=== PATIENT | female | born 1945 | race Caucasian/White ===

== ENCOUNTER → 2017-02-20 | Outpatient (CLI) | payer MEDICARE, OTHER ==
[2017-02-20 11:05] LABS: ABSOLUTE BASOPHILS # (AUTO) 0.1 10^3/uL (0.0-0.2); ABSOLUTE EOSINOPHILS # (AUTO) 1.1 10^3/uL (0.0-0.6); ABSOLUTE LYMPHOCYTES (AUTO) 1.7 10^3/uL (0.5-4.7); ABSOLUTE MONOCYTES (AUTO) 1.4 10^3/uL (0.1-1.4); ABSOLUTE NEUT (AUTO) 4.2 10^3/uL (1.7-8.2); BASOPHILS % (AUTO) 0.9 % (0-2); EOSINOPHILS % (AUTO) 12.6 % (0-6); HEMATOCRIT 37.1 % (36.0-47.0); HEMOGLOBIN 12.4 g/dL (12.0-15.5); HGB HCT DIFFERENCE 0.1; LYMPHOCYTES % (AUTO) 19.7 % (13-45); MEAN CORPUSCULAR HEMOGLOBIN 28.2 pg (27.0-33.4); MEAN CORPUSCULAR HGB CONC 33.3 g/dL (32.0-36.0); MEAN CORPUSCULAR VOLUME 85 fl (80-97); MONOCYTES % (AUTO) 16.7 % (3-13); RED BLOOD COUNT 4.37 10^6/uL (3.72-5.28); RED CELL DISTRIBUTION WIDTH 14.4 % (11.5-14.0); SEGMENTED NEUTROPHILS % (AUTO) 50.1 % (42-78); WHITE BLOOD COUNT 8.4 10^3/uL (4.0-10.5)
--- NOTE | 2017-02-20 11:07 | EKG REPORT ---
SEVERITY:- ABNORMAL ECG - SINUS RHYTHM LEFT BUNDLE BRANCH BLOCK : Confirmed by: Elizabeth Ford 20-Feb-2017 11:07:34
[2017-02-20 11:29] LABS: ANION GAP 11 (5-19); BLOOD UREA NITROGEN 19 mg/dL (7-20); CALCIUM 10.5 mg/dL (8.4-10.2); CARBON DIOXIDE 31 mmol/L (22-30); CHLORIDE 103 mmol/L (98-107); CREATININE RESULT 0.77 mg/dL (0.52-1.25); GLUCOSE 84 mg/dL (75-110); POTASSIUM 5.1 mmol/L (3.6-5.0); SODIUM 144.5 mmol/L (137-145)
[2017-02-20 11:36] LABS: APPEARANCE,URINE SLIGHTLY-CLOUDY; BILIRUBIN,URINE NEGATIVE (NEGATIVE); GLUCOSE, URINE NEGATIVE (NEGATIVE); KETONES,URINE TRACE mg/dL (NEGATIVE); LEUKOCYTE ESTERASE,URINE TRACE (NEGATIVE); NITRITE,URINE NEGATIVE (NEGATIVE); PROTEIN,URINE 30 mg/dL (NEGATIVE); URINE SPECIFIC GRAVITY 1.026; UROBILINOGEN,URINE NEGATIVE mg/dL (<2.0)
== END ==
LOC: OD 09:45
PROVIDERS: ATTEND Orthopaedic Surgery
DX: Z01.810 Encounter for preprocedural cardiovascular examination (principal); Z01.811 Encounter for preprocedural respiratory examination; Z01.818 Encounter for other preprocedural examination; J44.9 Chronic obstructive pulmonary disease, unspecified
CPT/HCPCS: 36415; 71020; 80048; 81001; 85025; 93005; 93010

== ENCOUNTER → 2017-03-01 | Outpatient (CLI) | payer MEDICARE, OTHER | LOC: RAD 11:57 | PROVIDERS: ATTEND Internal Medicine Critical Care Medicine | DX: R91.8 Other nonspecific abnormal finding of lung field (principal); R06.02 Shortness of breath; Z72.0 Tobacco use; J18.2 Hypostatic pneumonia, unspecified organism; R06.83 Snoring; G47.33 Obstructive sleep apnea (adult) (pediatric) | CPT/HCPCS: 71250 ==

== ENCOUNTER → 2017-03-01 | Outpatient (CLI) | payer MEDICARE, OTHER ==
[~2017-03-01] MED LIST: IBUPROFEN 800 MG/NS 250 ML IV PRN; LACTATED RINGERS 1000 ML IV PRN; LANSOPRAZOLE 15 MG TAB.RAP.DR PO PRN; LIDOCAINE 0.5% INJ-PF (5 MG/ML) 50 ML SDV SUBCUT PRN; OXYCODONE HCL SR 10 MG TABLET PO PRN; SCOPOLAMINE HYDROBROMIDE 1.5 MG PATCH.TD72 TOP PRN; VANCOMYCIN HCL 1,000 MG in DEXTROSE 5%-WATER 250 ML IV PRN
== END ==
LOC: OD 11:35 → EDSTATUS 03-12 12:30
PROVIDERS: ATTEND Orthopaedic Surgery
DX: Z53.9 Procedure and treatment not carried out, unspecified reason (principal)
CPT/HCPCS: J1741; J3370; J7050; J7060

== ENCOUNTER → 2017-03-21 | Outpatient (CLI) | payer MEDICARE, OTHER ==
[2017-03-22 11:40] LABS: ANTI-SS-B AB SJOGREN'S <0.2 AI (0.0-0.9); JO-1 ANTIBODY (ANACOMP) <0.2 AI (0.0-0.9)
[2017-03-22 14:13] LABS: ANGIOTENSIN-CONVERTING ENZYME 62 U/L (14-82)
[2017-03-23 14:40] LABS: ALPHA-1-ANTITRYPSIN SERUM 170 mg/dL (90-200)
[2017-03-23 17:37] LABS: CYTOPLASMIC (C-ANCA) <1:20 titer (Neg:<1:20)
== END ==
LOC: OD 08:29
PROVIDERS: ATTEND Internal Medicine Critical Care Medicine
DX: J45.909 Unspecified asthma, uncomplicated (principal); R91.8 Other nonspecific abnormal finding of lung field; R06.09 Other forms of dyspnea; J84.9 Interstitial pulmonary disease, unspecified; M19.90 Unspecified osteoarthritis, unspecified site; K21.9 Gastro-esophageal reflux disease without esophagitis; Z86.79 Personal history of other diseases of the circulatory system
CPT/HCPCS: 36415; 82103; 82104; 82164; 85652; 86021; 86038; 86140; 86235; 86430

== ENCOUNTER → 2017-05-15 | Outpatient (CLI) | payer MEDICARE, OTHER ==
[~2017-05-15] MED LIST changes: +BUPIVACAINE INJ/PF LIPOSOME/PF 266 MG/20 ML SDV IJ PRN; +CEFAZOLIN INJ 1 GM VIAL IV PRN; +IBUPROFEN 800 MG in NORMAL SALINE 250 ML IV PRN; -SCOPOLAMINE HYDROBROMIDE 1.5 MG PATCH.TD72 TOP PRN
--- NOTE | 2017-05-15 12:40 | EKG REPORT ---
SEVERITY:- ABNORMAL ECG - SINUS RHYTHM LVH WITH IVCD, LAD AND SECONDARY REPOL ABNRM : Confirmed by: Alyssa Coley MD 15-May-2017 12:39:59
[2017-05-15 12:48] LABS: HEMATOCRIT 40.7 % (36.0-47.0); HEMOGLOBIN 13.1 g/dL (12.0-15.5); HGB HCT DIFFERENCE -1.4; MEAN CORPUSCULAR HEMOGLOBIN 27.7 pg (27.0-33.4); MEAN CORPUSCULAR HGB CONC 32.2 g/dL (32.0-36.0); MEAN CORPUSCULAR VOLUME 86 fl (80-97); RED BLOOD COUNT 4.73 10^6/uL (3.72-5.28); RED CELL DISTRIBUTION WIDTH 13.9 % (11.5-14.0); WHITE BLOOD COUNT 9.7 10^3/uL (4.0-10.5)
[2017-05-15 12:56] LABS: APPEARANCE,URINE CLEAR; BILIRUBIN,URINE NEGATIVE (NEGATIVE); GLUCOSE, URINE NEGATIVE (NEGATIVE); KETONES,URINE NEGATIVE (NEGATIVE); LEUKOCYTE ESTERASE,URINE NEGATIVE (NEGATIVE); NITRITE,URINE NEGATIVE (NEGATIVE); PROTEIN,URINE NEGATIVE (NEGATIVE); URINE SPECIFIC GRAVITY 1.008; UROBILINOGEN,URINE NEGATIVE mg/dL (<2.0)
[2017-05-15 13:16] LABS: ANION GAP 14 (5-19); BLOOD UREA NITROGEN 21 mg/dL (7-20); CALCIUM 10.2 mg/dL (8.4-10.2); CARBON DIOXIDE 27 mmol/L (22-30); CHLORIDE 100 mmol/L (98-107); CREATININE RESULT 0.85 mg/dL (0.52-1.25); GLUCOSE 85 mg/dL (75-110); POTASSIUM 5.1 mmol/L (3.6-5.0); SODIUM 140.5 mmol/L (137-145)
--- NOTE | 2017-05-15 15:05 | RADIOLOGY REPORT (SQ) ---
EXAM DESCRIPTION: CHEST PA/LATERAL COMPLETED DATE/TIME: 05/15/2017 1:13 pm REASON FOR STUDY: PRE OP COMPARISON: CT chest 03/01/2017 Two-view chest 02/20/2017, 06/07/2016 EXAM PARAMETERS: NUMBER OF VIEWS: two views TECHNIQUE: Digital Frontal and Lateral radiographic views of the chest acquired. RADIATION DOSE: NA LIMITATIONS: none FINDINGS: LUNGS AND PLEURA: Lungs are hyperinflated with flattening of the hemidiaphragms. No focal infiltrates. No pleural effusion. No pneumothorax. MEDIASTINUM AND HILAR STRUCTURES: No masses or contour abnormalities. HEART AND VASCULAR STRUCTURES: Mild cardiomegaly. BONES: No acute findings. HARDWARE: None in the chest. OTHER: No other significant finding. IMPRESSION: Hyperinflation from obstructive disease. Stable cardiomegaly. TECHNICAL DOCUMENTATION: JOB ID: [id number] [email or web address]- All Rights Reserved <Electronically signed by SILVIA MENA MD in [place]> 05/15/17 1505 MTDD
[2017-05-18 14:51] VITALS: BP 124/89
== END ==
LOC: OD 10:16 → EDSTATUS 05-21 12:30
PROVIDERS: ATTEND Orthopaedic Surgery
DX: Z01.818 Encounter for other preprocedural examination (principal); M16.12 Unilateral primary osteoarthritis, left hip; M25.552 Pain in left hip
CPT/HCPCS: 36415; 71020; 80048; 81001; 85027; 93005; 93010; J1741; J3370; J7050; J7060

== ENCOUNTER 2017-08-13 07:00 | Day surgery (SDC) | payer MEDICARE, OTHER ==
[2017-08-13] MEDS ORDERED: PROPOFOL INJ 200 MG/20 ML VIAL IV ONE (07:21)
[2017-08-13] MEDS ORDERED: IPRATROPIUM/ALBUTEROL 0.5-2.5 MG/3 ML AMPUL NEB ONE (08:17)
[2017-08-13 10:00] VITALS: BP 119/70
--- NOTE | 2017-08-13 12:13 | Operative Report ---
Operative Report DATE OF SURGERY: 08/13/17 Operative Report: The risks, benefits and alternatives of the procedure including risks of bleeding, perforation requiring surgery are explained to the patient detail and informed consent was obtained. Patient was taken back to the endoscopy suite and placed in the left, lateral decubital position. Timeout was called. Propofol medications administered. A rectal examination was done which did not reveal any masses, tears or fissures. An Olympus videoscope was inserted in the patient's rectum. It was carefully guided all the way to the cecum. The cecum was identified by the usual anatomical landmarks including the ileocecal valve as well as the appendiceal office. Prep is good. Photodocumentation is obtained. The scope was then sequentially pulled back via the rest segments of the colon including the ascending colon, hepatic flexure, transverse colon, splenic flexure, descending colon finding to the rectosigmoid portions of the colon. Retroflexion maneuvers performed. The risks benefits and alternatives of the procedure explained to the patient in detail and informed consent is obtained.A GIF Olympus video scope was inserted into the patient's mouth and hypopharynx, the esophagus is identified intubated and insufflated, the scope was then advanced through the esophagus stomach and duodenum, retroflexion maneuver is done ,the esophagus stomach and first and second portions of the duodenum examined PREOPERATIVE DIAGNOSIS: Personal history of polyps. Gastroesophageal reflux disease. Epigastric pain POSTOPERATIVE DIAGNOSIS: Schatzki's ring status post biopsy to break. Hiatal hernia. Gastritis status post biopsy rule out Helicobacter pylori. Diverticulosis. Internal hemorrhoids. Mild right-sided colon inflammation status post biopsy OPERATION: Colonoscopy with biopsy. EGD with biopsy SURGEON: ARACELI HSU ANESTHESIA: LMAC TISSUE REMOVED OR ALTERED: As described above. COMPLICATIONS: None. ESTIMATED BLOOD LOSS: None. INTRAOPERATIVE FINDINGS: As described above. PROCEDURE: Patient tolerated procedure well. No immediate postprocedure complications are noted. Patient discharged in good condition. Discharge date 08/13/2017. Discharge diet: Regular. Discharge activity: Regular. 2-3 week follow-up to discuss findings. Patient is instructed to call the office or proceed to the emergency room should there be any further problems or questions. We will wait on pathology. 5 year surveillance colonoscopy
== END 2017-08-13 10:10 | disposition home or self-care (01) ==
LOC: END 07:00
PROVIDERS: ATTEND Internal Medicine Gastroenterology
PROC: 0DB68ZX Excision of Stomach, Via Natural or Artificial Opening Endoscopic, Diagnostic (ICD-10-PCS; principal; 2017-08-13 08:00)
PROC: 0DBF8ZX Excision of Right Large Intestine, Via Natural or Artificial Opening Endoscopic, Diagnostic (ICD-10-PCS; 2017-08-13 08:00)
DX: Z12.11 Encounter for screening for malignant neoplasm of colon (principal); K57.30 Diverticulosis of large intestine without perforation or abscess without bleeding; Z86.010 Personal history of colon polyps; K64.8 Other hemorrhoids; K22.2 Esophageal obstruction; K31.89 Other diseases of stomach and duodenum; K29.50 Unspecified chronic gastritis without bleeding; K44.9 Diaphragmatic hernia without obstruction or gangrene; J44.9 Chronic obstructive pulmonary disease, unspecified; M19.90 Unspecified osteoarthritis, unspecified site; I10 Essential (primary) hypertension; Z79.899 Other long term (current) drug therapy; Z79.51 Long term (current) use of inhaled steroids; Z88.1 Allergy status to other antibiotic agents; Z79.82 Long term (current) use of aspirin; I49.9 Cardiac arrhythmia, unspecified; G47.30 Sleep apnea, unspecified
CPT/HCPCS: 43239; 45380; 96375; 88305 ×2; 94640; J2704; A9270; 810; J7620

== ENCOUNTER → 2017-10-24 | Outpatient (CLI) | payer MEDICARE, OTHER ==
--- NOTE | 2017-10-24 09:37 | WOMENS IMAGING REPORT ---
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 TECHNIQUE: Dual-Energy X-ray Absorptiometry (DEXA) of the AP Spine and Hip. LIMITATIONS: None. FINDINGS: LUMBAR SPINE: The bone mineral density (BMD) measured from L1-L4 in the AP projection correlates with a T-score of 0.1, which is normal as defined by the World Health Organization. HIP: The bone mineral density (BMD) measured in the right hip correlates with a T-score of -1.4, which is osteopenia as defined by the World Health Organization. IMPRESSION: 1. LUMBAR SPINE: NORMAL. 2. HIP: OSTEOPENIA. COMMENT: The World Health Organization defines low BMD as follows: T-score: Normal: Greater than -1.0 Osteopenia: Between -1.0 and -2.5 Osteoporosis: Less than -2.5 without fractures Established osteoporosis: Less than -2.5 with fractures In general, you may wish to consider: Diagnosis Treatment Follow-up DEXA Normal BMD Prevention 2-3 years Osteopenia Prevention/Therapy 1-2 years Osteoporosis Therapy Yearly TECHNICAL DOCUMENTATION: JOB ID: [id number] [employer]- All Rights Reserved
== END ==
LOC: WI 08:52
PROVIDERS: ATTEND Internal Medicine
DX: M25.552 Pain in left hip (principal); Z96.642 Presence of left artificial hip joint; Z79.52 Long term (current) use of systemic steroids
CPT/HCPCS: 77080

== ENCOUNTER → 2018-07-08 | Outpatient (CLI) | payer MEDICARE, OTHER ==
--- NOTE | 2018-07-08 13:09 | RADIOLOGY REPORT (SQ) ---
EXAM DESCRIPTION: CT CHEST WITHOUT COMPLETED DATE/TIME: 07/08/2018 10:37 am REASON FOR STUDY: BRONCHIECTASIS, UNCOMPLICATED (J47.9) J47.9 BRONCHIECTASIS, UNCOMPLICATED COMPARISON: 03/01/2017 TECHNIQUE: CT scan performed of the chest without intravenous contrast. Images reviewed with lung, soft tissue and bone windows. Reconstructed coronal and sagittal MPR images reviewed. All images st ored on PACS. All CT scanners at this facility use dose modulation, iterative reconstruction, and/or weight based d osing when appropriate to reduce radiation dose to as low as reasonably achievable (ALARA). [facility]: Dose Right [facility]: CareDose [facility]: Dose Right [facility]: Teradose 4D [facility]: Applied StemCell RADIATION DOSE: CT Rad equipment meets quality standard of care and radiation dose reduction techniq ues were employed. CTDIvol: 16.6 mGy. DLP: 620 mGy-cm. mGy. LIMITATIONS: No technical limitations. FINDINGS: LUNGS AND PLEURA: Stable subsegmental honeycombing in the right upper lobe. Mild bronchie ctasis. No progression. No developing nodules or effusions. HILAR AND MEDIASTINAL STRUCTURES: No identified masses or abnormal nodes. No obvious aneurysm. HEART AND VASCULAR STRUCTURES: No aneurysm. No pericardial effusion. UPPER ABDOMEN: No significant findings. Limited exam. THYROID AND OTHER SOFT TISSUES: No masses. No adenopathy. BONES: No significant finding. HARDWARE: None in the chest. OTHER: No other significant findings. IMPRESSION: Mild fibrosis and bronchiectasis. No significant change. TECHNICAL DOCUMENTATION: JOB ID: [id number] Quality ID # [id number]: Final reports with documentation of one or more dose reduction techniques (e.g., Au tomated exposure control, adjustment of the mA and/or kV according to patient size, use of iterative reconstruction technique) 2010 [employer]- All Rights Reserved Reading location - IP/workstation name: [email or web address]
== END ==
LOC: RAD 10:22
PROVIDERS: ATTEND Physician Assistant
DX: J47.9 Bronchiectasis, uncomplicated (principal)
CPT/HCPCS: 71250

== ENCOUNTER 2019-10-13 08:43 | Inpatient (IN) | payer MEDICARE, OTHER ==
[2019-10-13] MEDS ORDERED: IPRATROPIUM/ALBUTEROL 0.5-2.5 MG/3 ML AMPUL NEB ONE (08:57)
--- NOTE | 2019-10-13 09:01 | ER Document Report ---
ED Medical Screen (RME) - General Chief Complaint: Shortness Of Breath Stated Complaint: SHORT OF BREATH Time Seen by Provider: 10/13/19 08:50 Primary Care Provider: KIM KENNEDY MD [Primary Care Provider] - Follow up as needed Notes: Patient is a 74-year-old female who presents emergency department with a chief complaint of shortness of breath. Patient states that she is had shortness of breath for the past couple of weeks. Patient thought it was anxiety. She states that she went to her primary care, who gave her BuSpar to help with her anxiety. She took half a pill last night, went to sleep and then when she woke up around 1:00 in the morning, she is still felt short of breath. She then took another half a pill and has been up since. Patient states that she has COPD. Her oxygen saturation here in triage is 86 to 92%. Patient is a previous smoker. Medical history of hypertension. Exam: Diminished expiratory breath sounds. I have greeted and performed a rapid initial assessment of this patient. A comprehensive ED assessment and evaluation of the patient, analysis of test results and completion of medical decision making process will be conducted by an additional ED providers. TRAVEL OUTSIDE OF THE [place] IN LAST 30 DAYS: No - Related Data Allergies/Adverse Reactions: levofloxacin [From [facility]] Adverse Reaction (Intermediate, Verified 10/13/19 08:49) joint pain Home Medications: copd. anxiety Past Medical History - Social History Chew tobacco use (# tins/day): No Frequency of alcohol use: None Drug Abuse: None - Past Medical History Cardiac Medical History: Reports: Hx Congestive Heart Failure, Hx Hypercholesterolemia, Hx Hypertension Denies: Hx Atrial Fibrillation, Hx Coronary Artery Disease, Hx Heart Attack, Hx Peripheral Vascular Disease, Hx Heart Murmur Pulmonary Medical History: Reports: Hx Bronchitis, Hx COPD - NO OXYGEN, Hx Respiratory Failure - Acute Hypoxic Resp. Failure 12/05/15, Hx Sleep Apnea - has CPAP, doesn't use Denies: Hx Asthma, Hx Pneumonia, Hx Tuberculosis Neurological Medical History: Denies: Hx Cerebrovascular Accident, Hx Seizures Endocrine Medical History: Denies: Hx Diabetes Mellitus Type 2, Hx Graves' Disease, Hx Hyperthyroidism, Hx Hypothyroidism Renal/ Medical History: Denies: Hx End Stage Renal Disease, Hx Kidney Stones, Hx Peritoneal Dialysis GI Medical History: Reports: Hx Gastroesophageal Reflux Disease. 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 KNEES, Denies Hx Fibromyalgia, Denies Hx Muscular Dystrophy, Denies Hx Systemic Lupus Erythematosus Psychiatric Medical History: Traumatic Medical History: Denies: Hx Fractures Past Surgical History: Reports: Hx Hysterectomy, Hx Orthopedic Surgery - bunions bilat.. Denies: Hx Appendectomy, Hx Bowel Surgery, Hx Section, Hx Cholecystectomy, Hx Colostomy, Hx Coronary Artery Bypass Graft, Hx Gastric Bypass Surgery, Hx Herniorrhaphy, Hx Mastectomy, Hx Pacemaker, Hx Tonsillectomy, Hx Tubal Ligation - Immunizations Hx Diphtheria, Pertussis, Tetanus Vaccination: Yes Physical Exam - Vital signs Vitals: Temp Pulse Resp BP Pulse Ox 97.2 F 117 H 28 H 117/83 90 L 10/13/19 08:52 10/13/19 08:52 10/13/19 08:52 10/13/19 08:52 10/13/19 08:52 Course - Vital Signs Vital signs: Temp Pulse Resp BP Pulse Ox 97.2 F 117 H 28 H 117/83 90 L 10/13/19 08:52 10/13/19 08:52 10/13/19 08:52 10/13/19 08:52 10/13/19 08:52 Doctor's Discharge - Discharge Referrals: KIM KENNEDY MD [Primary Care Provider] - Follow up as needed
[2019-10-13] MEDS ORDERED: ALBUTEROL SULFATE 0.083% NEB 2.5 MG/3 ML AMPUL NEB ONE (09:21)
[2019-10-13] MEDS ORDERED: METHYLPREDNISOLONE INJ 125 MG/2 ML SDV IV ONE (09:21)
[2019-10-13 09:43] LABS: ABSOLUTE BASOPHILS # (AUTO) 0.1 10^3/uL (0.0-0.2); ABSOLUTE EOSINOPHILS # (AUTO) 0.4 10^3/uL (0.0-0.6); ABSOLUTE LYMPHOCYTES (AUTO) 1.9 10^3/uL (0.5-4.7); ABSOLUTE MONOCYTES (AUTO) 1.1 10^3/uL (0.1-1.4); BASOPHILS % (AUTO) 0.6 % (0-2); EOSINOPHILS % (AUTO) 4.1 % (0-6); HEMATOCRIT 43.9 % (36.0-47.0); HEMOGLOBIN 14.3 g/dL (12.0-15.5); LYMPHOCYTES % (AUTO) 18.1 % (13-45); MEAN CORPUSCULAR HEMOGLOBIN 27.8 pg (27.0-33.4); MEAN CORPUSCULAR HGB CONC 32.6 g/dL (32.0-36.0); MEAN CORPUSCULAR VOLUME 85 fl (80-97); MONOCYTES % (AUTO) 10.1 % (3-13); PLATELET COUNT 311 10^3/uL (150-450); RED BLOOD COUNT 5.14 10^6/uL (3.72-5.28); RED CELL DISTRIBUTION WIDTH 14.5 % (11.5-14.0); SEGMENTED NEUTROPHILS % (AUTO) 67.1 % (42-78); TOTAL CELLS COUNTED % (AUTO) 100 %; WHITE BLOOD COUNT 10.4 10^3/uL (4.0-10.5)
[2019-10-13 10:07] LABS: INTERNATIONAL RATION (INR) 1.01; PROTHROMBIN TIME 13.3 SEC (11.4-15.4)
[2019-10-13 10:08] LABS: PARTIAL THROMBOPLASTIN TIME 37.3 SEC (23.5-35.8)
[2019-10-13 10:11] LABS: ALBUMIN 4.3 g/dL (3.5-5.0); ALKALINE PHOSPHATASE 101 U/L (38-126); ANION GAP 9 (5-19); ASPARTATE AMINO TRANSFERASE 22 U/L (14-36); BILIRUBIN,DIRECT 0.2 mg/dL (0.0-0.4); BILIRUBIN,TOTAL 0.8 mg/dL (0.2-1.3); BLOOD UREA NITROGEN 13 mg/dL (7-20); CALCIUM 10.1 mg/dL (8.4-10.2); CARBON DIOXIDE 30 mmol/L (22-30); CHLORIDE 100 mmol/L (98-107); CREATINE KINASE 29 U/L (30-135); GLUCOSE 112 mg/dL (75-110); POTASSIUM 5.2 mmol/L (3.6-5.0); TOTAL PROTEIN 7.8 g/dL (6.3-8.2)
--- NOTE | 2019-10-13 10:12 | RADIOLOGY REPORT (SQ) ---
EXAM DESCRIPTION: CHEST SINGLE VIEW COMPLETED DATE/TIME: 10/13/2019 9:36 am REASON FOR STUDY: Shortness of breath COMPARISON: CT chest 07/08/2018, 03/01/2017 Chest films 05/15/2017, 02/20/2017, 06/07/2016 EXAM PARAMETERS: NUMBER OF VIEWS: One view. TECHNIQUE: Single frontal radiographic view of the chest acquired. RADIATION DOSE: NA LIMITATIONS: Obese patient, portable technique FINDINGS: LUNGS AND PLEURA: No acute infiltrates. No pleural effusion or pneumothorax. MEDIASTINUM AND HILAR STRUCTURES: No masses. Contour normal. HEART AND VASCULAR STRUCTURES: Stable moderate cardiomegaly BONES: No acute findings. HARDWARE: None in the chest. OTHER: No other significant finding. IMPRESSION: No acute findings TECHNICAL DOCUMENTATION: JOB ID: [id number]- All Rights Reserved Reading location - IP/workstation name: [email or web address]
[2019-10-13 10:20] LABS: CREATINE KINASE MB 1.03 ng/mL (<4.55); NT PRO BNP 2020 pg/mL (<125)
[2019-10-13] MEDS ORDERED: DILTIAZEM HCL INJ 25 MG/5 ML VIAL IV ONE (10:21)
[2019-10-13] MEDS ORDERED: DILTIAZEM HCL/D5W 125 MG/125 ML RTUINJ IV PRN (10:21)
[2019-10-13 10:23] LABS: TROPONIN I < 0.012 ng/mL
--- NOTE | 2019-10-13 11:32 | ER Document Report ---
Entered by GISELA WONG SCRIBE 10/13/19 0914 Acting as scribe for:ROSIO MICHEL MD ED Respiratory Problem - General Chief Complaint: Shortness Of Breath Stated Complaint: SHORT OF BREATH Time Seen by Provider: 10/13/19 08:50 Primary Care Provider: KIM KENNEDY MD [NO LOCAL MD] - Follow up as needed Notes: This 74 year old female patient presents to the emergency department today with complaints of shortness of breath with an associated cough for the last few weeks. Nursing notes state that the patient went to her primary care physician (Dr. Piedra) who prescribed her BuSpar as she thought her shortness of breath could be related to her anxiety. Patient states she took half a pill last night and it seemed to help, she woke up at 1 AM still short of breath, took another half pill with no real change. Pertinent PMHx/PSHx: COPD, anxiety (BuSpar), congestive heart failure (Lasix) - additional PMHx/PSHx not pertinent to this visit as recorded. PCP: Doctor Ted Piedra TRAVEL OUTSIDE OF THE [place] IN LAST 30 DAYS: No - Related Data Allergies/Adverse Reactions: levofloxacin [From [facility]] Adverse Reaction (Intermediate, Verified 10/13/19 08:49) joint pain Home Medications: copd. anxiety Past Medical History - General Information source: Patient - Social History Smoking Status: Former Smoker Cigarette use (# per day): No Chew tobacco use (# tins/day): No Frequency of alcohol use: None Drug Abuse: None Lives with: Family Family History: CAD Patient has suicidal ideation: No Patient has homicidal ideation: No - Past Medical History Cardiac Medical History: Reports: Hx Congestive Heart Failure, Hx Hypercholesterolemia, Hx Hypertension Pulmonary Medical History: Reports: Hx Bronchitis, Hx COPD - NO OXYGEN, Hx Respiratory Failure - Acute Hypoxic Resp. Failure 12/05/15, Hx Sleep Apnea - has CPAP, doesn't use GI Medical History: Reports: Hx Gastroesophageal Reflux Disease Musculoskeletal Medical History: Reports Hx Arthritis - ELLEN. KNEES Psychiatric Medical History: Reports: Hx Anxiety Past Surgical History: Reports: Hx Hysterectomy, Hx Orthopedic Surgery - bunions bilat. right hip replacement. - Immunizations Hx Diphtheria, Pertussis, Tetanus Vaccination: Yes Hx Pneumococcal Vaccination: 09/26/16 Review of Systems - Review of Systems Constitutional: No symptoms reported EENT: No symptoms reported Cardiovascular: No symptoms reported Respiratory: See HPI, Cough, Short of breath, Sputum Gastrointestinal: No symptoms reported Genitourinary: No symptoms reported Female Genitourinary: No symptoms reported Musculoskeletal: No symptoms reported Skin: No symptoms reported Hematologic/Lymphatic: No symptoms reported Neurological/Psychological: No symptoms reported -: Yes All other systems reviewed and negative Physical Exam - Vital signs Vitals: Temp Pulse Resp BP Pulse Ox 97.2 F 117 H 28 H 117/83 90 L 10/13/19 08:52 10/13/19 08:52 10/13/19 08:52 10/13/19 08:52 10/13/19 08:52 - Notes Notes: Physical Exam: General: Alert, appears well. Getting breathing treatment. HEENT: Normocephalic. Atraumatic. PERRL. Extraocular movements intact. Orophar ynx clear. Neck: Supple. Non-tender. Respiratory: Diffuse wheezes and rhonchi. Cardiovascular: Irregularly irregular. Tachycardia. Abdominal: Obese. Soft. Normal bowel sounds. Nontender. Back: No gross abnormalities. Extremities: Moves all four extremities. Upper extremities: Normal inspection. Normal ROM. Lower extremities: Osteoarthritic knees. No peripheral edema. Neurological: Normal cognition. AAOx4. Normal speech. Psychological: Normal affect. Normal Mood. Skin: Warm. Dry. Normal color. Course - Re-evaluation Re-evalutation: 10/13/19 11:11 After Cardizem bolus and Cardizem drip, patient's heart rate is 92, blood pressure is 130/80. - Vital Signs Vital signs: Temp Pulse Resp BP Pulse Ox 97.2 F 117 H 26 H 150/129 H 92 10/13/19 08:52 10/13/19 08:52 10/13/19 10:01 10/13/19 10:01 10/13/19 10:01 - Laboratory Result Diagrams: 10/13/19 09:18 10/13/19 09:18 Laboratory results interpreted by me: 10/13/19 10/13/19 10/13/19 09:18 09:18 09:18 RDW 14.5 H APTT 37.3 H Potassium 5.2 H Glucose 112 H Creatine Kinase 29 L NT-Pro-B Natriuret Pep 11/18/19 09:18 RDW APTT Potassium Glucose Creatine Kinase NT-Pro-B Natriuret Pep 2020 H - Diagnostic Test Radiology reviewed: Image reviewed, Reports reviewed - Chest x-ray shows stable moderate cardiomegaly without acute findings. - EKG Interpretation by Me EKG shows normal: [place], Intervals, QRS Complexes, ST-T Waves Rate: Tachycardia - 110 Rhythm: A.Fib [place]/QRS: LBBB When compared to previous EKG there are: Changes noted - Consults Dr. Krishna Time consulted: 11:01 Consulted provider: will come to ER Discharge - Discharge Clinical Impression: COPD exacerbation, Atrial fibrillation with rapid ventricular response Condition: Good Disposition: ADMITTED INPATIENT Admitting Provider: Dayana (Hospitalist) Unit Admitted: [facility]U Referrals: KIM KENNEDY MD [NO LOCAL MD] - Follow up as needed Scribe Attestation: 10/13/19 10:22 I personally performed the services described in the documentation, reviewed and edited the documentation which was dictated to the scribe in my presence, and it accurately records my words and actions. I personally performed the services described in the documentation, reviewed and edited the documentation which was dictated to the scribe in my presence, and it accurately records my words and actions.
--- NOTE | 2019-10-13 13:25 | EKG REPORT ---
SEVERITY:- ABNORMAL ECG - ATRIAL FIBRILLATION, V-RATE 90-153 LEFT BUNDLE BRANCH BLOCK : Confirmed by: Sudheer Alvarez MD 13-Oct-2019 13:24:05
[2019-10-13] MEDS ORDERED: PROMETHAZINE HCL INJ 25 MG/1 ML VIAL IV PRN (13:27)
[2019-10-13] MEDS ORDERED: ACETAMINOPHEN 650 MG SUPP.RECT PR PRN (13:27)
[2019-10-13] MEDS ORDERED: ONDANSETRON HCL INJ/PF 4 MG/2 ML SDV IV PRN (13:27)
[2019-10-13] MEDS ORDERED: TEMAZEPAM 7.5 MG CAPSULE PO PRN (13:27)
[2019-10-13] MEDS ORDERED: HEPARIN SOD (PORCINE) 5,000 UNIT/ML 1 ML VIAL SUBCUT SCH (14:00)
[2019-10-13] MEDS ORDERED: INFLUENZA QUAD (6MOS+) 2019-20 VAC 0.5 ML SYR IM ONE (14:16)
[2019-10-13] MEDS: LEVALBUTEROL HCL NEB 1.25 MG/3 ML AMPUL NEB SCH ×2 (14:28→19:57)
[2019-10-13] MEDS ORDERED: SODIUM POLYSTYRENE SULFONATE 15 GM/60 ML PO ONE (14:30)
[2019-10-13] MEDS: METOPROLOL TARTRATE 25 MG TABLET PO SCH ×2 (15:37→22:34)
[2019-10-13] MEDS ORDERED: LOSARTAN POTASSIUM 50 MG TABLET PO SCH (17:15)
--- NOTE | 2019-10-13 17:32 | PDOC H&P ---
History of Present Illness Admission Date/PCP: 10/13/19 12:03 KATHLEEN WHITFIELD History of Present Illness: PETER VERONICA is a 74 year old female past medical history of CHF, dyslipidemia, hypertension, COPD, GERD, anxiety, acromegaly, pituitary tumor presenting to ED complaining of stomach shortness of breath, dyspnea on exertion, for the last few weeks associated with productive cough and occasional palpitations, patient presented to her PCP complaining of anxiety was given some BuSpar which as per patient did not help. Denying any fever, chills, chest pain, nausea, vomiting, diarrhea, constipation or any urinary symptoms. In ED she was found to be in A. fib RVR and hospitalist was consulted for admission. Past Medical History Cardiac Medical History: Reports: Congestive Heart Failure, Hyperlipidema, Hypertension Denies: Atrial Fibrillation, Coronary Artery Disease, Myocardial Infarction, Peripheral Vascular Disease, Heart Murmur Pulmonary Medical History: Reports: Bronchitis, Chronic Obstructive Pulmonary Disease (COPD) - NO OXYGEN, Respiratory Failure - Acute Hypoxic Resp. Failure 12/05/15, Sleep Apnea - has CPAP, doesn't use Denies: Asthma, Pneumonia, Tuberculosis Neurological Medical History: Denies: Seizures Endocrine Medical History: Denies: Diabetes Mellitus Type 2, Hyperthyroidism, Hypothyroidism Renal/ Medical History: Denies: End Stage Renal Disease GI Medical History: Reports: Gastroesophageal Reflux Disease Denies: Crohn's Disease, Hiatal Hernia Musculoskeltal Medical History: Reports: Arthritis - ELLEN. KNEES Denies: Fibromyalgia Psychiatric Medical History: Denies: Depression Hematology: Denies: Anemia Past Surgical History Past Surgical History: Reports: Hysterectomy, Orthopedic Surgery - bunions bilat. right hip replacement. Denies: Amputation, Appendectomy, Section, Cholecystectomy, Colostomy, Coronary Artery Bypass Graft, Gastric Bypass Surgery, Herniorrhaphy, Mastectomy, Pacemaker, Tonsillectomy, Tubal Ligation Social History Lives with: Family Smoking Status: Former Smoker Cigarettes Packs Per Day: 0.5 Electronic Cigarette use?: No Number of Years Smokin Frequency of Alcohol Use: None Hx Recreational Drug Use: No Drugs: None Hx Prescription Drug Abuse: No - Advance Directive Resuscitation Status: Full Code Family History Family History: CAD Parental Family History Reviewed: Yes Children Family History Reviewed: Yes Sibling(s) Family History Reviewed.: Yes Medication/Allergy Home Medications: Aspirin [Ecotrin 81 mg EC Tablet] 81 mg PO DAILY 07/25/12 Carvedilol [Coreg 6.25 mg Tablet] 2 tab PO QPM #0 tablet 02/24/15 Acetaminophen [Tylenol 325 mg Tablet] 325 mg PO Q6 PRN 12/06/15 Naproxen 500 mg PO DAILY PRN 12/06/15 Albuterol Sulfate [Proair Respiclick] 90 mcg IH ASDIR PRN 02/26/17 Atorvastatin Calcium [Lipitor 10 mg Tablet] 10 mg PO QPM 02/26/17 Carvedilol [Coreg 6.25 mg Tablet] 1.5 tab PO QAM 02/26/17 Fluticasone/Salmeterol [Advair 250-50 Diskus 14 Dose/Diskus] 1 inh IH BID 02/26/17 Loratadine [Claritin 10 mg Tablet] 10 mg PO QAM PRN 02/26/17 Losartan Potassium 100 mg PO QPM 02/26/17 Multivitamin [Multivitamins] 1 each PO DAILY 02/26/17 Pegvisomant [Somavert] 30 mg SQ DAILY 02/26/17 Spironolactone 12.5 mg PO ASDIR PRN 02/26/17 Hydrocodone/Acetaminophen [Enterprise 5-325 mg Tablet] 1 tab PO ASDIR PRN 08/13/17 Allergies/Adverse Reactions: levofloxacin [From Levaquin] Adverse Reaction (Intermediate, Verified 10/13/19 08:49) joint pain Review of Systems Review of Systems: as per hpi Physical Exam Vital Signs: Temp Pulse Resp BP Pulse Ox 98.0 F 81 18 120/82 96 10/13/19 13:59 10/13/19 14:33 10/13/19 14:33 10/13/19 13:59 10/13/19 14:33 Intake & Output 10/12/19 10/13/19 10/14/19 06:59 06:59 06:59 Intake Total 41 Balance 41 Weight 96.82 kg General appearance: PRESENT: no acute distress, well-developed, well-nourished Respiratory exam: PRESENT: crackles, wheezes. ABSENT: rales, rhonchi Cardiovascular exam: PRESENT: irregular rhythm. ABSENT: diastolic murmur, rubs, systolic murmur GI/Abdominal exam: PRESENT: normal bowel sounds, soft. ABSENT: distended, gua rding, mass, organolmegaly, rebound, tenderness Neurological exam: PRESENT: alert, awake, oriented to person, oriented to place, oriented to time, oriented to situation, CN II-XII grossly intact. ABSENT: motor sensory deficit Results Laboratory Results: 10/13/19 09:18 10/13/19 09:18 10/13/19 10/13/19 09:18 09:18 WBC 10.4 RBC 5.14 Hgb 14.3 Hct 43.9 MCV 85 MCH 27.8 MCHC 32.6 RDW 14.5 H Plt Count 311 Seg Neutrophils % 67.1 Sodium 138.8 Potassium 5.2 H Chloride 100 Carbon Dioxide 30 Anion Gap 9 BUN 13 Creatinine 0.80 Est GFR ( Amer) > 60 Glucose 112 H Calcium 10.1 Total Bilirubin 0.8 AST 22 Alkaline Phosphatase 101 Total Protein 7.8 Albumin 4.3 10/13/19 10/13/19 09:18 09:18 Creatine Kinase 29 L CK-MB (CK-2) 1.03 Troponin I < 0.012 NT-Pro-B Natriuret Pep 2020 H Impressions: Chest X-Ray 10/13/19 08:56 IMPRESSION: No acute findings Assessment and Plan - Diagnosis (1) Atrial fibrillation with rapid ventricular response Is this a current diagnosis for this admission?: Yes Plan: New onset. Transient. Likely due to acute CHF/COPD exacerbation. CHADS score 4. Anticoagulation indicated. Initially started on Cardizem drip in ED rate control. Admit to telemetry, beta-blockers, 2D echo, weight-based low molecular weight heparin to be transitioned to either Coumadin or NOACs. I have discussed this case with Dr. Coley over the phone he stated that since patient already has a testing tech at [facility] Dr. Barba who she saw last in 07/2019, she could be rate controlled and discharged to follow up with her. If there is any need for consultation for cardiology please consult Dr. Coley. (2) Acute respiratory failure with hypoxia Is this a current diagnosis for this admission?: Yes Plan: Acute hypoxic respiratory failure most likely due to acute CHF/COPD exacerbation. Admit to ICU, duo nebs, IV steroids, BiPAP, pulmonary toileting, incentive spirometry, flutter valve. (3) Acute exacerbation of CHF (congestive heart failure) Qualifiers: Heart failure type: combined systolic and diastolic Qualified Code(s): I50.43 - Acute on chronic combined systolic (congestive) and diastolic (congestive) heart failure Is this a current diagnosis for this admission?: Yes Plan: Denies any CAD. History of cardiomyopathy caused by acromegaly. Sees Dr. Barr at [facility]. Elevated BNP. Admit to ICU, fluid restriction, cardiac diet, ARB, beta-blockers, IV Lasix. (4) COPD exacerbation Is this a current diagnosis for this admission?: Yes Plan: As per #1. (5) Acromegaly Is this a current diagnosis for this admission?: Yes Plan: On Pegviomant. History of pituitary. Status post surgery. Restart home meds. Outpatient PCP follow-up. (6) Pituitary tumor Is this a current diagnosis for this admission?: Yes Plan: s/p surgery.
[2019-10-13] MEDS: SPIRONOLACTONE 25 MG TABLET PO SCH (17:44)
[2019-10-13] MEDS: ASPIRIN 81 MG TABLET, CHEWABLE PO SCH (18:13)
[2019-10-13] MEDS: IPRATROPIUM BROMIDE 0.02% NEB 0.5 MG/2.5 ML AMPUL NEB SCH (19:57)
[2019-10-13] MEDS: METHYLPREDNISOLONE INJ 40 MG/1 ML SDV IV SCH (22:34)
[2019-10-13] MEDS: ENOXAPARIN SODIUM INJ 100 MG/1 ML DISP.SYRIN SUBCUT SCH (22:34)
[2019-10-14] MEDS: ACETAMINOPHEN 325 MG TABLET PO PRN ×2 (01:02→23:43)
[2019-10-14] MEDS: LEVALBUTEROL HCL NEB 1.25 MG/3 ML AMPUL NEB SCH ×4 (01:53→19:56)
[2019-10-14] MEDS: PANTOPRAZOLE SODIUM 20 MG TABLET.DR PO SCH (05:44)
[2019-10-14] MEDS: METHYLPREDNISOLONE INJ 40 MG/1 ML SDV IV SCH (05:45)
[2019-10-14 06:32] LABS: ABSOLUTE LYMPHOCYTES (AUTO) 0.9 10^3/uL (0.5-4.7); ABSOLUTE MONOCYTES (AUTO) 0.3 10^3/uL (0.1-1.4); ABSOLUTE NEUT (AUTO) 7.1 10^3/uL (1.7-8.2); BASOPHILS % (AUTO) 0.1 % (0-2); HEMATOCRIT 39.3 % (36.0-47.0); HEMOGLOBIN 12.9 g/dL (12.0-15.5); LYMPHOCYTES % (AUTO) 10.5 % (13-45); MEAN CORPUSCULAR HEMOGLOBIN 27.9 pg (27.0-33.4); MEAN CORPUSCULAR HGB CONC 32.8 g/dL (32.0-36.0); MEAN CORPUSCULAR VOLUME 85 fl (80-97); MONOCYTES % (AUTO) 3.4 % (3-13); PLATELET COUNT 257 10^3/uL (150-450); RED BLOOD COUNT 4.61 10^6/uL (3.72-5.28); RED CELL DISTRIBUTION WIDTH 14.3 % (11.5-14.0); TOTAL CELLS COUNTED % (AUTO) 100 %; WHITE BLOOD COUNT 8.3 10^3/uL (4.0-10.5)
[2019-10-14 07:06] LABS: ALBUMIN 3.7 g/dL (3.5-5.0); ALKALINE PHOSPHATASE 100 U/L (38-126); ANION GAP 12 (5-19); ASPARTATE AMINO TRANSFERASE 17 U/L (14-36); BILIRUBIN,DIRECT 0.3 mg/dL (0.0-0.4); BILIRUBIN,TOTAL 0.6 mg/dL (0.2-1.3); BLOOD UREA NITROGEN 20 mg/dL (7-20); CALCIUM 9.6 mg/dL (8.4-10.2); CARBON DIOXIDE 26 mmol/L (22-30); CHLORIDE 102 mmol/L (98-107); GLUCOSE 243 mg/dL (75-110); POTASSIUM 4.5 mmol/L (3.6-5.0); TOTAL PROTEIN 6.7 g/dL (6.3-8.2)
[2019-10-14] MEDS: IPRATROPIUM BROMIDE 0.02% NEB 0.5 MG/2.5 ML AMPUL NEB SCH ×3 (07:45→19:56)
[2019-10-14 09:17] LABS: FREE T3 2.29 pg/mL (2.77-5.27); FREE T4 (FREE THYROXINE) 1.08 ng/dL (0.78-2.19)
[2019-10-14] MEDS: ASPIRIN 81 MG TABLET, CHEWABLE PO SCH (09:24)
[2019-10-14] MEDS: METOPROLOL TARTRATE 25 MG TABLET PO SCH (09:27)
[2019-10-14] MEDS: LOSARTAN POTASSIUM 50 MG TABLET PO SCH (09:27)
[2019-10-14] MEDS: SPIRONOLACTONE 25 MG TABLET PO SCH (09:27)
[2019-10-14] MEDS: ENOXAPARIN SODIUM INJ 100 MG/1 ML DISP.SYRIN SUBCUT SCH (09:28)
[2019-10-14 09:31] LABS: THYROID STIMULATING HORMONE 0.47 uIU/mL (0.47-4.68)
[2019-10-14] MEDS ORDERED: PEGVISOMANT SUBCUT SCH (12:30)
[2019-10-14] MEDS ORDERED: ALBUTEROL SULFATE HFA (90 MCG/PUFF) 200 PUFF/8.5 GM MDI IH PRN (12:30)
--- NOTE | 2019-10-14 12:37 | PDOC PROGRESS REPORT ---
Subjective Progress Note for:: 10/14/19 Subjective:: This is a 74 year old female past medical history of CHF, dyslipidemia, hypertension, COPD, GERD, anxiety, acromegaly, pituitary tumor who presented with shortness of breath and palpitations. She was found to have newly diagnosed A. fib with RVR. She was initially started on Cardizem drip. No acute event overnight. Patient has been weaned off Cardizem drip. She is in A. fib with a heart rate and 102-104. She says she feels better today. Denies chest pain she says her shortness of breath has significantly improved today. We discussed the risk and benefits of long-term anticoagulation including the different options. She verbalized understanding and prefers to be started on either Xarelto or Eliquis. Currently saturating well on 2 L of nasal cannula. Reason For Visit: NEW ONSET AFIB, CHF EXACERBATION,COPD EXACERBATION Physical Exam Vital Signs: Temp Pulse Resp BP Pulse Ox 98.6 F 110 H 18 108/69 90 L 10/14/19 11:14 10/14/19 11:14 10/14/19 11:14 10/14/19 11:14 10/14/19 11:14 Intake & Output 10/13/19 10/14/19 10/15/19 06:59 06:59 06:59 Intake Total 592 Output Total 150 Balance 442 Weight 220 lb 7.396 oz General appearance: PRESENT: no acute distress, well-developed, well-nourished Head exam: PRESENT: atraumatic, normocephalic Eye exam: PRESENT: conjunctiva pink, EOMI, PERRLA. ABSENT: scleral icterus Ear exam: PRESENT: normal external ear exam Mouth exam: PRESENT: moist, tongue midline Neck exam: ABSENT: carotid bruit, JVD, lymphadenopathy, thyromegaly Respiratory exam: ABSENT: rales, wheezes Cardiovascular exam: PRESENT: irregular rhythm, tachycardia. ABSENT: diastolic murmur, rubs, systolic murmur Pulses: PRESENT: normal dorsalis pedis pul GI/Abdominal exam: PRESENT: normal bowel sounds, soft. ABSENT: distended, guarding, mass, organolmegaly, rebound, tenderness Rectal exam: PRESENT: deferred Extremities exam: PRESENT: full ROM. ABSENT: calf tenderness, clubbing, pedal edema Neurological exam: PRESENT: alert, awake, oriented to person, oriented to place, oriented to time, oriented to situation, CN II-XII grossly intact. ABSENT: motor sensory deficit Results Laboratory Results: 10/14/19 05:33 10/14/19 05:33 10/14/19 10/14/19 10/14/19 05:33 05:33 05:33 WBC 8.3 RBC 4.61 Hgb 12.9 Hct 39.3 MCV 85 MCH 27.9 MCHC 32.8 RDW 14.3 H Plt Count 257 Seg Neutrophils % 86.0 H Sodium 139.8 Potassium 4.5 Chloride 102 Carbon Dioxide 26 Anion Gap 12 BUN 20 Creatinine 0.78 Est GFR ( Amer) > 60 Glucose 243 H Calcium 9.6 Magnesium 2.3 Total Bilirubin 0.6 AST 17 Alkaline Phosphatase 100 Total Protein 6.7 Albumin 3.7 TSH 0.47 Free T4 1.08 Free T3 pg/mL 2.29 L 10/13/19 10/13/19 09:18 09:18 Creatine Kinase 29 L CK-MB (CK-2) 1.03 Troponin I < 0.012 NT-Pro-B Natriuret Pep 2020 H Impressions: Chest X-Ray 10/13/19 08:56 IMPRESSION: No acute findings Assessment and Plan - Diagnosis (1) Acute respiratory failure with hypoxia Is this a current diagnosis for this admission?: Yes Plan: Secondary to CHF exacerbation related to A. fib and RVR with concomitant COPD exacerbation. Currently saturating well on 2 L nasal cannula. We will try to wean off O2. (2) COPD (chronic obstructive pulmonary disease) Is this a current diagnosis for this admission?: Yes Plan: Switch Solu-Medrol to prednisone. Continue breathing treatments. (3) Atrial fibrillation with rapid ventricular response Is this a current diagnosis for this admission?: Yes Plan: Rate controlled. Continue Lopressor. TSH low at 0.27. Will check a T3 and T4. Currently on therapeutic Lovenox. Will switch to Xarelto as discussed above. (4) Acute exacerbation of CHF (congestive heart failure) Qualifiers: Heart failure type: combined systolic and diastolic Qualified Code(s): I50.43 - Acute on chronic combined systolic (congestive) and diastolic (congestive) heart failure Is this a current diagnosis for this admission?: Yes Plan: Related to A. fib with RVR. - Time Time Spent with patient: 25-34 minutes
[2019-10-14] MEDS: METOPROLOL TARTRATE PF/INJ 5 MG/5 ML SDV IV PRN ×2 (13:07→20:28)
[2019-10-14] MEDS: RIVAROXABAN 15 MG TABLET PO SCH (16:09)
[2019-10-14] MEDS ORDERED: METOPROLOL TARTRATE PF/INJ 5 MG/5 ML SDV IV ONE (16:30)
[2019-10-14] MEDS: DICYCLOMINE HCL 20 MG TABLET PO SCH (17:19)
[2019-10-14] MEDS: PREDNISONE 10 MG TABLET PO SCH (17:22)
[2019-10-14] MEDS: METOPROLOL TARTRATE 50 MG TABLET PO SCH (22:32)
[2019-10-15] MEDS: LEVALBUTEROL HCL NEB 1.25 MG/3 ML AMPUL NEB SCH ×4 (02:30→19:33)
[2019-10-15] MEDS: PANTOPRAZOLE SODIUM 20 MG TABLET.DR PO SCH (05:22)
[2019-10-15 05:37] LABS: HEMATOCRIT 38.7 % (36.0-47.0); HEMOGLOBIN 12.6 g/dL (12.0-15.5); MEAN CORPUSCULAR HEMOGLOBIN 27.7 pg (27.0-33.4); MEAN CORPUSCULAR HGB CONC 32.6 g/dL (32.0-36.0); MEAN CORPUSCULAR VOLUME 85 fl (80-97); PLATELET COUNT 262 10^3/uL (150-450); RED BLOOD COUNT 4.55 10^6/uL (3.72-5.28); RED CELL DISTRIBUTION WIDTH 14.7 % (11.5-14.0)
[2019-10-15] MEDS: IPRATROPIUM BROMIDE 0.02% NEB 0.5 MG/2.5 ML AMPUL NEB SCH ×3 (07:53→19:33)
[2019-10-15] MEDS: ASCORBIC ACID 500 MG TABLET PO SCH (10:24)
[2019-10-15] MEDS: MULTIVITAMIN TABLET PO SCH (10:24)
[2019-10-15] MEDS: CYANOCOBALAMIN (VITAMIN B-12) 1,000 MCG TABLET PO SCH (10:24)
[2019-10-15] MEDS: SPIRONOLACTONE 25 MG TABLET PO SCH (10:26)
[2019-10-15] MEDS: ASPIRIN 81 MG TABLET, CHEWABLE PO SCH (10:27)
[2019-10-15] MEDS: LOSARTAN POTASSIUM 50 MG TABLET PO SCH (10:27)
[2019-10-15] MEDS: METOPROLOL TARTRATE 50 MG TABLET PO SCH ×2 (10:27→21:37)
[2019-10-15] MEDS: DICYCLOMINE HCL 20 MG TABLET PO SCH ×2 (10:27→17:35)
[2019-10-15] MEDS: MAGNESIUM OXIDE 400 MG TABLET PO SCH (10:27)
[2019-10-15] MEDS: PREDNISONE 10 MG TABLET PO SCH ×2 (10:28→17:35)
[2019-10-15] MEDS: FLUTICASONE/UMECLIDIN/VILANTER 100-62.5-25 MCG/DOSE IH SCH (10:28)
--- NOTE | 2019-10-15 12:54 | PDOC PROGRESS REPORT ---
Subjective Progress Note for:: 10/15/19 Subjective:: This is a 74 year old female past medical history of CHF, dyslipidemia, hypertension, COPD, GERD, anxiety, acromegaly, pituitary tumor who presented with shortness of breath and palpitations. She was found to have newly diagnosed A. fib with RVR. She was initially started on Cardizem drip. 10/14: Patient has been weaned off Cardizem drip. She is in A. fib with a heart rate and 102-104. She says she feels better today. Denies chest pain she says her shortness of breath has significantly improved today. We discussed the risk and benefits of long-term anticoagulation including the different options. She verbalized understanding and prefers to be started on either Xarelto or Eliquis. Currently saturating well on 2 L of nasal cannula. 10/15: No acute event overnight. Lopressor was increased to 50 g every 12 yesterday. Resting heart rate has improved significantly down to the high 80s. However she did went to the 140-160s when she started ambulating and got short of breath. No hypoxia or desaturation. Reason For Visit: NEW ONSET AFIB, CHF EXACERBATION,COPD EXACERBATION Physical Exam Vital Signs: Temp Pulse Resp BP Pulse Ox 97.8 F 86 16 126/88 H 92 10/15/19 11:35 10/15/19 11:35 10/15/19 11:35 10/15/19 11:35 10/15/19 11:35 Intake & Output 10/14/19 10/15/19 10/16/19 06:59 06:59 06:59 Intake Total 592 1424 Output Total 150 Balance 442 1424 Weight 220 lb 7.396 oz 226 lb 3.108 oz General appearance: PRESENT: no acute distress, well-developed, well-nourished Head exam: PRESENT: atraumatic, normocephalic Eye exam: PRESENT: conjunctiva pink, EOMI, PERRLA. ABSENT: scleral icterus Ear exam: PRESENT: normal external ear exam Mouth exam: PRESENT: moist, tongue midline Neck exam: ABSENT: carotid bruit, JVD, lymphadenopathy, thyromegaly Respiratory exam: PRESENT: clear to auscultation yves. ABSENT: rales, rhonchi, wheezes Cardiovascular exam: PRESENT: irregular rhythm. ABSENT: diastolic murmur, rubs, systolic murmur Pulses: PRESENT: normal dorsalis pedis pul GI/Abdominal exam: PRESENT: normal bowel sounds, soft. ABSENT: distended, guarding, mass, organolmegaly, rebound, tenderness Rectal exam: PRESENT: deferred Neurological exam: PRESENT: alert, awake, oriented to person, oriented to place, oriented to time, oriented to situation, CN II-XII grossly intact. ABSENT: motor sensory deficit Results Laboratory Results: 10/15/19 04:48 10/14/19 05:33 10/15/19 04:48 WBC 16.0 H RBC 4.55 Hgb 12.6 Hct 38.7 MCV 85 MCH 27.7 MCHC 32.6 RDW 14.7 H Plt Count 262 10/13/19 09:18 Sputum Gram Stain - Final 10/13/19 10/13/19 09:18 09:18 Creatine Kinase 29 L CK-MB (CK-2) 1.03 Troponin I < 0.012 NT-Pro-B Natriuret Pep 2020 H Impressions: Chest X-Ray 10/13/19 08:56 IMPRESSION: No acute findings Assessment and Plan - Diagnosis (1) Acute respiratory failure with hypoxia Is this a current diagnosis for this admission?: Yes Plan: Secondary to CHF exacerbation related to A. fib and RVR with concomitant COPD exacerbation. Currently saturating well on 2 L nasal cannula. Continue attempts to wean off O2. (2) Atrial fibrillation with rapid ventricular response Is this a current diagnosis for this admission?: Yes Plan: Continue Lopressor 50 mg every 12. No bleeding issues with Xarelto so far. (3) COPD (chronic obstructive pulmonary disease) Is this a current diagnosis for this admission?: Yes Plan: Switched Solu-Medrol to prednisone. Continue breathing treatments. (4) Acute exacerbation of CHF (congestive heart failure) Qualifiers: Heart failure type: combined systolic and diastolic Qualified Code(s): I50.43 - Acute on chronic combined systolic (congestive) and diastolic (congestive) heart failure Is this a current diagnosis for this admission?: Yes Plan: Related to A. fib with RVR. - Time Time Spent with patient: 25-34 minutes
[2019-10-15] MEDS: NORMAL SALINE 1000 ML 1,000 ML IV PRN (13:40)
[2019-10-15] MEDS: RIVAROXABAN 15 MG TABLET PO SCH (17:35)
[2019-10-16] MEDS: LEVALBUTEROL HCL NEB 1.25 MG/3 ML AMPUL NEB SCH ×4 (02:08→20:38)
[2019-10-16] MEDS: PANTOPRAZOLE SODIUM 20 MG TABLET.DR PO SCH (05:58)
[2019-10-16] MEDS: IPRATROPIUM BROMIDE 0.02% NEB 0.5 MG/2.5 ML AMPUL NEB SCH ×3 (08:04→20:38)
[2019-10-16] MEDS: DILTIAZEM HCL 120 MG CAP.SR.24H PO SCH (09:10)
[2019-10-16] MEDS: LOSARTAN POTASSIUM 50 MG TABLET PO SCH (09:10)
[2019-10-16] MEDS: ASPIRIN 81 MG TABLET, CHEWABLE PO SCH ×2 (09:10→11:47)
[2019-10-16] MEDS: METOPROLOL TARTRATE 50 MG TABLET PO SCH ×2 (09:10→22:04)
[2019-10-16] MEDS: CYANOCOBALAMIN (VITAMIN B-12) 1,000 MCG TABLET PO SCH (09:11)
[2019-10-16] MEDS: ASCORBIC ACID 500 MG TABLET PO SCH (09:11)
[2019-10-16] MEDS: MAGNESIUM OXIDE 400 MG TABLET PO SCH (09:11)
[2019-10-16] MEDS: PREDNISONE 10 MG TABLET PO SCH ×2 (09:12→17:02)
[2019-10-16] MEDS: DICYCLOMINE HCL 20 MG TABLET PO SCH ×2 (09:12→17:01)
[2019-10-16] MEDS: SPIRONOLACTONE 25 MG TABLET PO SCH (09:12)
[2019-10-16] MEDS: MULTIVITAMIN TABLET PO SCH (09:12)
[2019-10-16] MEDS: FLUTICASONE/UMECLIDIN/VILANTER 100-62.5-25 MCG/DOSE IH SCH (09:26)
[2019-10-16] MEDS ORDERED: AZITHROMYCIN 250 MG TABLET PO SCH (10:00)
[2019-10-16] MEDS: ACETYLCYSTEINE 20% SOLN 800 MG/4 ML VIAL.NEB NEB SCH ×3 (10:47→20:38)
[2019-10-16] MEDS: GUAIFENESIN 600 MG TABLET.SA PO SCH ×2 (11:55→22:04)
[2019-10-16] MEDS: NORMAL SALINE 1000 ML 1,000 ML IV PRN (12:19)
--- NOTE | 2019-10-16 13:04 | PDOC PROGRESS REPORT ---
Subjective Progress Note for:: 10/16/19 Subjective:: This is a 74 year old female past medical history of CHF, dyslipidemia, hypertension, COPD, GERD, anxiety, acromegaly, pituitary tumor who presented with shortness of breath and palpitations. She was found to have newly diagnosed A. fib with RVR. She was initially started on Cardizem drip. 10/14: Patient has been weaned off Cardizem drip. She is in A. fib with a heart rate and 102-104. She says she feels better today. Denies chest pain she says her shortness of breath has significantly improved today. We discussed the risk and benefits of long-term anticoagulation including the different options. She verbalized understanding and prefers to be started on either Xarelto or Eliquis. Currently saturating well on 2 L of nasal cannula. 10/15: No acute event overnight. Lopressor was increased to 50 g every 12 yesterday. Resting heart rate has improved significantly down to the high 80s. However she did went to the 140-160s when she started ambulating and got short of breath. No hypoxia or desaturation. 10/16: Resting heart is better but she contineus to go to the 140s-160s when she ambulates and is symptomatic and gets short of breath. Otherwise, no other acute issues. Denies chest pain. Will add PO cardizem. Also consulted cardiology. Reason For Visit: NEW ONSET AFIB, CHF EXACERBATION,COPD EXACERBATION Physical Exam Vital Signs: Temp Pulse Resp BP Pulse Ox 98.3 F 91 16 121/86 H 97 10/16/19 07:25 10/16/19 08:04 10/16/19 08:04 10/16/19 07:25 10/16/19 08:04 Intake & Output 10/15/19 10/16/19 10/17/19 06:59 06:59 06:59 Intake Total 1424 1060 Output Total 1500 Balance 1424 -440 Weight 226 lb 3.108 oz 228 lb 6.382 oz General appearance: PRESENT: no acute distress, well-developed, well-nourished Head exam: PRESENT: atraumatic, normocephalic Eye exam: PRESENT: conjunctiva pink, EOMI, PERRLA. ABSENT: scleral icterus Ear exam: PRESENT: normal external ear exam Mouth exam: PRESENT: moist, tongue midline Neck exam: ABSENT: carotid bruit, JVD, lymphadenopathy, thyromegaly Respiratory exam: PRESENT: clear to auscultation yves. ABSENT: rales, rhonchi, wheezes Cardiovascular exam: PRESENT: irregular rhythm, tachycardia. ABSENT: diastolic murmur, rubs, systolic murmur Pulses: PRESENT: normal dorsalis pedis pul GI/Abdominal exam: PRESENT: normal bowel sounds, soft. ABSENT: distended, guarding, mass, organolmegaly, rebound, tenderness Rectal exam: PRESENT: deferred Neurological exam: PRESENT: alert, awake, oriented to person, oriented to place, oriented to time, oriented to situation, CN II-XII grossly intact. ABSENT: motor sensory deficit Results Laboratory Results: 10/15/19 04:48 10/14/19 05:33 10/13/19 09:18 Sputum Gram Stain - Final 10/13/19 09:18 Sputum Sputum Culture - Final Pseudomonas Aeruginosa Normal Windy 10/13/19 10/13/19 09:18 09:18 Creatine Kinase 29 L CK-MB (CK-2) 1.03 Troponin I < 0.012 NT-Pro-B Natriuret Pep 2020 H Impressions: Chest X-Ray 10/13/19 08:56 IMPRESSION: No acute findings Assessment and Plan - Diagnosis (1) Acute respiratory failure with hypoxia Is this a current diagnosis for this admission?: Yes Plan: Secondary to CHF exacerbation related to A. fib and RVR with concomitant COPD exacerbation. Currently saturating well on 2 L nasal cannula. Continue attempts to wean off O2. (2) Atrial fibrillation with rapid ventricular response Is this a current diagnosis for this admission?: Yes Plan: Continue Lopressor 50 mg every 12. No bleeding issues with Xarelto so far. 10/16: Add PO cardizem. Cardiology consulted. (3) COPD (chronic obstructive pulmonary disease) Is this a current diagnosis for this admission?: Yes Plan: Continue prednisone. Continue breathing treatments. (4) Acute exacerbation of CHF (congestive heart failure) Qualifiers: Heart failure type: combined systolic and diastolic Qualified Code(s): I50.43 - Acute on chronic combined systolic (congestive) and diastolic (congestive) heart failure Is this a current diagnosis for this admission?: Yes Plan: Related to A. fib with RVR. - Time Time Spent with patient: 25-34 minutes
[2019-10-16] MEDS ORDERED: RIVAROXABAN 15 MG TABLET PO SCH (17:00)
[2019-10-16] MEDS: RIVAROXABAN 10 MG TABLET PO SCH (17:01)
--- NOTE | 2019-10-16 19:18 | PDOC CONSULTATION ---
Consultation Consult Date: 10/16/19 Attending physician:: CARLITO PAYNE Provider Consulted: ANDRZEJ MCQUEEN Consult reason:: Atrial Fibrillation History of Present Illness Admission Date/PCP: 10/13/19 12:03 KATHLEEN WHITFIELD Patient complains of: Palpitations History of Present Illness: PETER VERONICA is a 74 year old female with the following active problems 1. Atrial fibrillation 2. Acute bronchitis 3. Normal Coronaries 02/2017 4. LBBB 5. Preserved LVEF 02/2019 6. Dyslipidemia 7. HFNEF 8. TOÑA She was admitted with Acute bronchitis and was found to be in atrial fibrillation with RVR. She has been started on antibiotics and rate control medi cations-initially IV and now PO. Presently feels better. Resting HR 90-100 bpm, Afib on telemetry, but with ambulation goes up to 140's Past Medical History Cardiac Medical History: Reports: Congestive Heart Failure, Hyperlipidema, Hypertension Denies: Atrial Fibrillation, Coronary Artery Disease, Myocardial Infarction, Peripheral Vascular Disease, Heart Murmur Pulmonary Medical History: Reports: Bronchitis, Chronic Obstructive Pulmonary Disease (COPD) - NO OXYGEN, Respiratory Failure - Acute Hypoxic Resp. Failure 12/05/15, Sleep Apnea - has CPAP, doesn't use Denies: Asthma, Pneumonia, Tuberculosis Neurological Medical History: Denies: Seizures Endocrine Medical History: Denies: Diabetes Mellitus Type 2, Hyperthyroidism, Hypothyroidism Renal/ Medical History: Denies: End Stage Renal Disease GI Medical History: Reports: Gastroesophageal Reflux Disease Denies: Crohn's Disease, Hiatal Hernia Musculoskeltal Medical History: Reports: Arthritis - ELLEN. KNEES Denies: Fibromyalgia Psychiatric Medical History: Denies: Depression Hematology: Denies: Anemia Past Surgical History Past Surgical History: Reports: Hysterectomy, Orthopedic Surgery - bunions bilat. right hip replacement. Denies: Amputation, Appendectomy, Section, Cholecystectomy, Colostomy, Coronary Artery Bypass Graft, Gastric Bypass Surgery, Herniorrhaphy, Mastectomy, Pacemaker, Tonsillectomy, Tubal Ligation Social History Lives with: Family Smoking Status: Former Smoker Cigarettes Packs Per Day: 0.5 Electronic Cigarette use?: No Number of Years Smokin Frequency of Alcohol Use: None Hx Recreational Drug Use: No Drugs: None Hx Prescription Drug Abuse: No - Advance Directive Resuscitation Status: Full Code Family History Family History: CAD Parental Family History Reviewed: Yes - HTN, DM Children Family History Reviewed: NA Sibling(s) Family History Reviewed.: NA Medication/Allergy Home Medications: Acetaminophen [Tylenol Extra Strength 500 mg Tablet] 1,000 mg PO Q6HP PRN 10/14/19 Albuterol Sulfate [Proair HFA Inhalation Aerosol 8.5 gm MDI] 2 puff IH Q4HP PRN 10/14/19 Ascorbic Acid [Vitamin C] 1,000 mg PO DAILY 10/14/19 Aspirin [Adult Low Dose Aspirin EC] 81 mg PO DAILY 10/14/19 Cyanocobalamin (Vitamin B-12) [Vitamin B-12 1000 mcg Tablet] 1,000 mcg PO DAILY 10/14/19 Dicyclomine HCl [Bentyl 20 mg Tablet] 20 mg PO BID 10/14/19 Fluticasone/Umeclidin/Vilanter [Trelegy 100-62.5-25 Mcg Ellipta 14 Dose/Dpi] 1 puff IH DAILY 10/14/19 Magnesium Oxide [Mag-Ox 400 mg Tablet] 400 mg PO DAILY 10/14/19 Multivitamin [Multiple Vitamins] 1 tab PO DAILY 10/14/19 Pegvisomant [Somavert] 30 mg SQ MOTUTHFRSA 10/14/19 Allergies/Adverse Reactions: levofloxacin [From Levaquin] Adverse Reaction (Intermediate, Verified 10/13/19 08:49) joint pain Review of Systems Constitutional: PRESENT: as per HPI Eyes: PRESENT: as per HPI Ears: PRESENT: as per HPI Nose, Mouth, and Throat: PRESENT: as per HPI Cardiovascular: PRESENT: palpitations Respiratory: PRESENT: as per HPI, cough Physical Exam Vital Signs: Temp Pulse Resp BP Pulse Ox 99.0 F 91 18 113/79 96 10/16/19 14:51 10/16/19 14:51 10/16/19 14:51 10/16/19 14:51 10/16/19 14:51 Intake & Output 10/15/19 10/16/19 10/17/19 06:59 06:59 06:59 Intake Total 1424 1060 2500 Output Total 1500 900 Balance 1424 -440 1600 Weight 102.6 kg 103.6 kg General appearance: PRESENT: no acute distress Head exam: PRESENT: atraumatic, normocephalic Eye exam: PRESENT: EOMI Mouth exam: PRESENT: moist Respiratory exam: PRESENT: decreased breath sounds, rales Cardiovascular exam: PRESENT: irregular rhythm Pulses: PRESENT: normal radial pulses GI/Abdominal exam: PRESENT: soft Musculoskeletal exam: PRESENT: normal inspection Neurological exam: PRESENT: alert, oriented to person, oriented to place, oriented to time Psychiatric exam: PRESENT: appropriate affect Skin exam: PRESENT: dry Results Laboratory Results: 10/15/19 04:48 10/14/19 05:33 10/13/19 09:18 Sputum Gram Stain - Final 10/13/19 09:18 Sputum Sputum Culture - Final Pseudomonas Aeruginosa Normal Windy 10/13/19 10/13/19 09:18 09:18 Creatine Kinase 29 L CK-MB (CK-2) 1.03 Troponin I < 0.012 NT-Pro-B Natriuret Pep 2020 H EKG Comments: EKG 10/13/2019 Atrial fibrillation LBBB Tele Atrial fibrillation rate 100's Echo LVEF 56% 02/2017 Cardiac cath negative for CAD 03/08/2017 [facility] [place] Impressions: Chest X-Ray 10/13/19 08:56 IMPRESSION: No acute findings Assessment & Plan - Diagnosis (1) Atrial fibrillation with rapid ventricular response Is this a current diagnosis for this admission?: Yes Plan: New onset. In setting of acute bronchitis Agree with rate control measures Up titrate beta-blockers as tolerated Need systemic anticoagulation -Rivaroxaban 20 mg daily No real indication for ASA-can be stopped( Increased bleeding risk) Can be discharged if rate controlled and symptomatically better. If continues to be in atrial fibrillation can arrange for [facility]
[2019-10-17] MEDS: LEVALBUTEROL HCL NEB 1.25 MG/3 ML AMPUL NEB SCH ×4 (01:47→20:10)
[2019-10-17] MEDS: PANTOPRAZOLE SODIUM 20 MG TABLET.DR PO SCH (05:24)
[2019-10-17 06:32] LABS: APPEARANCE,URINE CLEAR; BILIRUBIN,URINE NEGATIVE (NEGATIVE); COLOR,URINE STRAW; GLUCOSE, URINE NEGATIVE (NEGATIVE); KETONES,URINE NEGATIVE (NEGATIVE); LEUKOCYTE ESTERASE,URINE NEGATIVE (NEGATIVE); NITRITE,URINE NEGATIVE (NEGATIVE); PROTEIN,URINE NEGATIVE (NEGATIVE); URINE SPECIFIC GRAVITY 1.006; UROBILINOGEN,URINE NEGATIVE mg/dL (<2.0)
[2019-10-17 07:38] LABS: HEMATOCRIT 39.1 % (36.0-47.0); HEMOGLOBIN 12.6 g/dL (12.0-15.5); MEAN CORPUSCULAR HEMOGLOBIN 27.7 pg (27.0-33.4); MEAN CORPUSCULAR HGB CONC 32.1 g/dL (32.0-36.0); MEAN CORPUSCULAR VOLUME 86 fl (80-97); PLATELET COUNT 243 10^3/uL (150-450); RED BLOOD COUNT 4.53 10^6/uL (3.72-5.28); RED CELL DISTRIBUTION WIDTH 15.2 % (11.5-14.0); WHITE BLOOD COUNT 10.6 10^3/uL (4.0-10.5)
[2019-10-17] MEDS: ACETYLCYSTEINE 20% SOLN 800 MG/4 ML VIAL.NEB NEB SCH ×2 (07:41→20:09)
[2019-10-17] MEDS: IPRATROPIUM BROMIDE 0.02% NEB 0.5 MG/2.5 ML AMPUL NEB SCH ×3 (07:41→20:10)
--- NOTE | 2019-10-17 09:26 | RADIOLOGY REPORT (SQ) ---
EXAM DESCRIPTION: CHEST SINGLE VIEW COMPLETED DATE/TIME: 10/17/2019 8:14 am REASON FOR STUDY: assess for congestion COMPARISON: AP view of the chest from 10/13/2019. EXAM PARAMETERS: NUMBER OF VIEWS: One view. TECHNIQUE: Single frontal radiographic view of the chest acquired. RADIATION DOSE: NA LIMITATIONS: None. FINDINGS: LUNGS AND PLEURA: There are chronic bilateral subpleural reticular opacities. There is no superimposed consolidation, pleural effusion or pneumothorax. MEDIASTINUM AND HILAR STRUCTURES: Stable mediastinal and hilar contours. HEART AND VASCULAR STRUCTURES: The cardiac silhouette is enlarged. The pulmonary vasculature is with in normal limits given the low inspiratory lung volumes. BONES: No acute findings. HARDWARE: None in the chest. OTHER: No other finding. IMPRESSION: Cardiomegaly and chronic bilateral subpleural reticular opacities without a superimposed acute cardiopulmonary process. TECHNICAL DOCUMENTATION: JOB ID: [id number] [employer]- All Rights Reserved Reading location - IP/workstation name: [email or web address]
[2019-10-17] MEDS ORDERED: LEVOFLOXACIN 750 MG TABLET PO SCH (10:00)
[2019-10-17] MEDS: SPIRONOLACTONE 25 MG TABLET PO SCH (10:20)
[2019-10-17] MEDS: DICYCLOMINE HCL 20 MG TABLET PO SCH ×2 (10:22→18:09)
[2019-10-17] MEDS: ASPIRIN 81 MG TABLET, CHEWABLE PO SCH (10:22)
[2019-10-17] MEDS: DILTIAZEM HCL 120 MG CAP.SR.24H PO SCH (10:22)
[2019-10-17] MEDS: ASCORBIC ACID 500 MG TABLET PO SCH (10:23)
[2019-10-17] MEDS: MAGNESIUM OXIDE 400 MG TABLET PO SCH (10:23)
[2019-10-17] MEDS: METOPROLOL TARTRATE 50 MG TABLET PO SCH ×2 (10:23→21:50)
[2019-10-17] MEDS: PREDNISONE 10 MG TABLET PO SCH ×2 (10:24→18:09)
[2019-10-17] MEDS: CYANOCOBALAMIN (VITAMIN B-12) 1,000 MCG TABLET PO SCH (10:24)
[2019-10-17] MEDS: MULTIVITAMIN TABLET PO SCH (10:24)
[2019-10-17] MEDS: LOSARTAN POTASSIUM 50 MG TABLET PO SCH (10:25)
[2019-10-17] MEDS: GUAIFENESIN 600 MG TABLET.SA PO SCH ×2 (10:25→21:50)
[2019-10-17] MEDS: NORMAL SALINE 1000 ML 1,000 ML IV PRN (10:28)
[2019-10-17] MEDS: FLUTICASONE/UMECLIDIN/VILANTER 100-62.5-25 MCG/DOSE IH SCH (10:35)
[2019-10-17] MEDS: DILTIAZEM HCL 30 MG TABLET PO SCH ×2 (12:48→18:05)
--- NOTE | 2019-10-17 14:18 | PDOC PROGRESS REPORT ---
Subjective Progress Note for:: 10/17/19 Subjective:: This is a 74 year old female past medical history of CHF, dyslipidemia, hypertension, COPD, GERD, anxiety, acromegaly, pituitary tumor who presented with shortness of breath and palpitations. She was found to have newly diagnosed A. fib with RVR. She was initially started on Cardizem drip. 10/14: Patient has been weaned off Cardizem drip. She is in A. fib with a heart rate and 102-104. She says she feels better today. Denies chest pain she says her shortness of breath has significantly improved today. We discussed the risk and benefits of long-term anticoagulation including the different options. She verbalized understanding and prefers to be started on either Xarelto or Eliquis. Currently saturating well on 2 L of nasal cannula. 10/15: No acute event overnight. Lopressor was increased to 50 g every 12 yesterday. Resting heart rate has improved significantly down to the high 80s. However she did went to the 140-160s when she started ambulating and got short of breath. No hypoxia or desaturation. 10/16: Resting heart is better but she contineus to go to the 140s-160s when she ambulates and is symptomatic and gets short of breath. Otherwise, no other acute issues. Denies chest pain. Will add PO cardizem. Also consulted cardiology. 10/17: No acute event overnight. She says she feels better today. Heart rate still goes up on ambulation but is better at 110s. Will increase p.o. Cardizem today. Reason For Visit: NEW ONSET AFIB, CHF EXACERBATION,COPD EXACERBATION Physical Exam Vital Signs: Temp Pulse Resp BP Pulse Ox 98.3 F 86 18 100/62 96 10/17/19 11:39 10/17/19 11:39 10/17/19 11:39 10/17/19 11:39 10/17/19 11:39 Intake & Output 10/16/19 10/17/19 10/18/19 06:59 06:59 06:59 Intake Total 1060 3340 1386 Output Total 1500 1250 850 Balance -440 2090 536 Weight 228 lb 6.382 oz 229 lb 0.964 oz General appearance: PRESENT: no acute distress, well-developed, well-nourished Head exam: PRESENT: atraumatic, normocephalic Eye exam: PRESENT: conjunctiva pink, EOMI, PERRLA. ABSENT: scleral icterus Ear exam: PRESENT: normal external ear exam Mouth exam: PRESENT: moist, tongue midline Neck exam: ABSENT: carotid bruit, JVD, lymphadenopathy, thyromegaly Respiratory exam: PRESENT: rhonchi. ABSENT: rales, wheezes Cardiovascular exam: PRESENT: irregular rhythm, tachycardia. ABSENT: diastolic murmur, rubs, systolic murmur Pulses: PRESENT: normal dorsalis pedis pul GI/Abdominal exam: PRESENT: normal bowel sounds, soft. ABSENT: distended, guard ing, mass, organolmegaly, rebound, tenderness Rectal exam: PRESENT: deferred Extremities exam: PRESENT: full ROM. ABSENT: calf tenderness, clubbing, pedal edema Neurological exam: PRESENT: alert, awake, oriented to person, oriented to place, oriented to time, oriented to situation, CN II-XII grossly intact. ABSENT: motor sensory deficit Results Laboratory Results: 10/17/19 07:04 10/14/19 05:33 10/16/19 10/17/19 20:44 07:04 WBC 10.6 H RBC 4.53 Hgb 12.6 Hct 39.1 MCV 86 MCH 27.7 MCHC 32.1 RDW 15.2 H Plt Count 243 Urine Color STRAW Urine Appearance CLEAR Urine pH 6.0 Ur Specific [place] 1.006 Urine Protein NEGATIVE Urine Glucose (UA) NEGATIVE Urine Ketones NEGATIVE Urine Blood NEGATIVE Urine Nitrite NEGATIVE Ur Leukocyte Esterase NEGATIVE Urine WBC (Auto) 1 Urine RBC (Auto) 0 10/13/19 09:18 Sputum Gram Stain - Final 10/13/19 09:18 Sputum Sputum Culture - Final Pseudomonas Aeruginosa Normal Windy 10/13/19 10/13/19 09:18 09:18 Creatine Kinase 29 L CK-MB (CK-2) 1.03 Troponin I < 0.012 NT-Pro-B Natriuret Pep 2020 H Impressions: Chest X-Ray 10/17/19 07:00 IMPRESSION: Cardiomegaly and chronic bilateral subpleural reticular opacities without a superimposed acute cardiopulmonary process. Assessment and Plan - Diagnosis (1) Atrial fibrillation with rapid ventricular response Is this a current diagnosis for this admission?: Yes Plan: Continue Lopressor 50 mg every 12. No bleeding issues with Xarelto so far. 10/16: Add PO cardizem. Cardiology consulted. 10/17: Will increase p.o. Cardizem today. (2) Acute respiratory failure with hypoxia Is this a current diagnosis for this admission?: Yes Plan: Secondary to CHF exacerbation related to A. fib and RVR with concomitant COPD exacerbation. Currently saturating well on 2 L nasal cannula. Continue attempts to wean off O2. (3) COPD (chronic obstructive pulmonary disease) Is this a current diagnosis for this admission?: Yes Plan: Continue prednisone. Continue breathing treatments. (4) Acute exacerbation of CHF (congestive heart failure) Qualifiers: Heart failure type: combined systolic and diastolic Qualified Code(s): I50.43 - Acute on chronic combined systolic (congestive) and diastolic (congestive) heart failure Is this a current diagnosis for this admission?: Yes Plan: Related to A. fib with RVR. (5) Acute bronchitis Is this a current diagnosis for this admission?: Yes Plan: Sputum culture grew Pseudomonas. Continue Levaquin. - Time Time Spent with patient: 25-34 minutes
[2019-10-17] MEDS: RIVAROXABAN 10 MG TABLET PO SCH (18:05)
[2019-10-17 18:58] LABS: APPEARANCE,URINE CLEAR; BILIRUBIN,URINE NEGATIVE (NEGATIVE); COLOR,URINE STRAW; GLUCOSE, URINE NEGATIVE (NEGATIVE); KETONES,URINE NEGATIVE (NEGATIVE); LEUKOCYTE ESTERASE,URINE TRACE (NEGATIVE); NITRITE,URINE NEGATIVE (NEGATIVE); PROTEIN,URINE NEGATIVE (NEGATIVE); URINE SPECIFIC GRAVITY 1.008; UROBILINOGEN,URINE NEGATIVE mg/dL (<2.0)
[2019-10-18] MEDS: DILTIAZEM HCL 30 MG TABLET PO SCH ×3 (00:35→11:27)
[2019-10-18] MEDS: ACETAMINOPHEN 325 MG TABLET PO PRN (01:03)
[2019-10-18] MEDS: LEVALBUTEROL HCL NEB 1.25 MG/3 ML AMPUL NEB SCH ×3 (01:51→14:17)
[2019-10-18] MEDS ORDERED: KETOROLAC TROMETHAMINE INJ/PF 30 MG/1 ML SDV IV PRN ×2 (05:07→06:17)
[2019-10-18] MEDS: KETOROLAC TROMETHAMINE INJ/PF 30 MG/1 ML SDV ONE ×2 (05:13)
[2019-10-18] MEDS: PANTOPRAZOLE SODIUM 20 MG TABLET.DR PO SCH (05:16)
--- NOTE | 2019-10-18 06:09 | RADIOLOGY REPORT (SQ) ---
Pelvis and left hip two view on 10/18/2019 at 5:22 AM CLINICAL INDICATION: Acute left hip pain COMPARISON: None FINDINGS: The patient is status post a left total hip arthroplasty. Mild changes of osteoarthritis are noted in the right hip. No definite hardware complication or dislocation is noted. The SI joints are well aligned. There are no fractures. IMPRESSION: No acute abnormality.
[2019-10-18] MEDS: ACETYLCYSTEINE 20% SOLN 800 MG/4 ML VIAL.NEB NEB SCH (07:41)
[2019-10-18] MEDS: IPRATROPIUM BROMIDE 0.02% NEB 0.5 MG/2.5 ML AMPUL NEB SCH ×2 (07:42→14:17)
[2019-10-18] MEDS ORDERED: CIPROFLOXACIN HCL 500 MG TABLET PO SCH (10:00)
[2019-10-18] MEDS: CYANOCOBALAMIN (VITAMIN B-12) 1,000 MCG TABLET PO SCH (10:12)
[2019-10-18] MEDS: SPIRONOLACTONE 25 MG TABLET PO SCH (10:12)
[2019-10-18] MEDS: METOPROLOL TARTRATE 50 MG TABLET PO SCH (10:12)
[2019-10-18] MEDS: LOSARTAN POTASSIUM 50 MG TABLET PO SCH (10:12)
[2019-10-18] MEDS: MULTIVITAMIN TABLET PO SCH (10:12)
[2019-10-18] MEDS: MAGNESIUM OXIDE 400 MG TABLET PO SCH (10:12)
[2019-10-18] MEDS: DICYCLOMINE HCL 20 MG TABLET PO SCH (10:12)
[2019-10-18] MEDS: FLUTICASONE/UMECLIDIN/VILANTER 100-62.5-25 MCG/DOSE IH SCH (10:13)
[2019-10-18] MEDS: PREDNISONE 10 MG TABLET PO SCH (10:13)
[2019-10-18] MEDS: ASCORBIC ACID 500 MG TABLET PO SCH (10:13)
[2019-10-18] MEDS: GUAIFENESIN 600 MG TABLET.SA PO SCH (10:13)
[2019-10-18 14:17] VITALS: BP 120/82
--- NOTE | 2019-10-18 16:41 | PDOC DISCHARGE SUMMARY ---
Impression - Admit/DC Date/PCP Admission Date/Primary Care Provider: 10/13/19 12:03 KATHLEEN WHITFIELD Discharge Date: 10/18/19 - Discharge Diagnosis (1) Atrial fibrillation with rapid ventricular response Is this a current diagnosis for this admission?: Yes (2) Acute respiratory failure with hypoxia Is this a current diagnosis for this admission?: Yes (3) COPD (chronic obstructive pulmonary disease) Is this a current diagnosis for this admission?: Yes (4) Acute exacerbation of CHF (congestive heart failure) Is this a current diagnosis for this admission?: Yes (5) Acute bronchitis Is this a current diagnosis for this admission?: Yes (6) Pituitary tumor Is this a current diagnosis for this admission?: Yes (7) Hyperlipidemia Is this a current diagnosis for this admission?: Yes (8) Hypertension Is this a current diagnosis for this admission?: Yes (9) Acromegaly Is this a current diagnosis for this admission?: Yes - Additional Information Resuscitation Status: Full Code Discharge Diet: Cardiac Discharge Activity: Activity As Tolerated, Balance Activity w/Rest, Weigh Daily Referrals: KIM KENNEDY MD [NO LOCAL MD] - 10/28/19 10:00 am Prescriptions: Diltiazem HCl [Cardizem 30 mg Tablet] 30 mg PO Q8 #90 tablet Ciprofloxacin HCl [Cipro 500 mg Tablet] 500 mg PO Q12 4 Days #8 tablet Losartan Potassium [Cozaar 50 mg Tablet] 50 mg PO DAILY #30 tablet Prednisone [Deltasone 10 mg Tablet] 10 mg PO BID 4 Days #8 tablet Metoprolol Tartrate [Lopressor 50 mg Tablet] 50 mg PO Q12 #60 tablet Guaifenesin [Mucinex Sr 600 mg Tablet.sa] 600 mg PO Q12 #8 tablet.sa Rivaroxaban [Xarelto] 20 mg PO QHS #30 tablet Home Medications: Acetaminophen [Tylenol Extra Strength 500 mg Tablet] 1,000 mg PO Q6HP PRN Albuterol Sulfate [Proair HFA Inhalation Aerosol 8.5 gm MDI] 2 puff IH Q4HP PRN 10/14/19 Ascorbic Acid [Vitamin C] 1,000 mg PO DAILY 10/14/19 Cyanocobalamin (Vitamin B-12) [Vitamin B-12 1000 mcg Tablet] 1,000 mcg PO DAILY 10/14/19 Dicyclomine HCl [Bentyl 20 mg Tablet] 20 mg PO BID 10/14/19 Fluticasone/Umeclidin/Vilanter [Trelegy 100-62.5-25 Mcg Ellipta 14 Dose/Dpi] 1 puff IH DAILY 10/14/19 Magnesium Oxide [Mag-Ox 400 mg Tablet] 400 mg PO DAILY 10/14/19 Multivitamin [Multiple Vitamins] 1 tab PO DAILY 10/14/19 Pegvisomant [Somavert] 30 mg SQ MOTUTHFRSA 10/14/19 Ciprofloxacin HCl [Cipro 500 mg Tablet] 500 mg PO Q12 4 Days #8 tablet 10/18/19 Diltiazem HCl [Cardizem 30 mg Tablet] 30 mg PO Q8 #90 tablet 10/18/19 Guaifenesin [Mucinex Sr 600 mg Tablet.sa] 600 mg PO Q12 #8 tablet.sa 10/18/19 Losartan Potassium [Cozaar 50 mg Tablet] 50 mg PO DAILY #30 tablet 10/18/19 Metoprolol Tartrate [Lopressor 50 mg Tablet] 50 mg PO Q12 #60 tablet 10/18/19 Prednisone [Deltasone 10 mg Tablet] 10 mg PO BID 4 Days #8 tablet 10/18/19 Rivaroxaban [Xarelto] 20 mg PO QHS #30 tablet 10/18/19 History of Present Illiness History of Present Illness: Admitting hospitalist's H&P: PETER VERONICA is a 74 year old female past medical history of CHF, dyslipidemia, hypertension, COPD, GERD, anxiety, acromegaly, pituitary tumor presenting to ED complaining of stomach shortness of breath, dyspnea on exertion, for the last few weeks associated with productive cough and occasional palpitations, patient presented to her PCP complaining of anxiety was given some BuSpar which as per patient did not help. Denying any fever, chills, chest pain, nausea, vomiting, diarrhea, constipation or any urinary symptoms. In ED she was found to be in A. fib RVR and hospitalist was consulted for admission. Hospital Course Hospital Course: This is a 74 year old female past medical history of CHF, dyslipidemia, hypertension, COPD, GERD, anxiety, acromegaly, pituitary tumor who presented with shortness of breath and palpitations. She was found to have newly diagnosed A. fib with RVR. She was initially started on Cardizem drip. She has been off Cardizem drip and was switched to p.o. Lopressor. She did go into A. fib with RVR again which slightly prolonged her course. Oral Cardizem was added to her regimen. She was also seen by cardiology. Her p.o. Lopressor and Cardizem were increased and she was eventually rate controlled. She was also started on Xarelto after discussing the risks and benefits of long-term anti-coagulation. She did have a recent cath and echo at [facility] which did not show any obstructive CAD. She also had a normal ejection fraction. She was also started on breathing treatments and steroids for COPD exacerbation. She did have productive, greenish sputum and sputum culture grew Pseudomonas. She reports history of joint pains from levofloxacin. She was challenged with another course of levofloxacin but did develop joint pains hence was switched to ciprofloxacin which she tolerated better. She returned to her baseline and was weaned off O2. She was able to ambulate the hallways without any desaturation or acute issues. She remained rate controlled from 70-90s while on ambulation. She will follow-up with Dr. Victorino Venegas. Physical Exam Vital Signs: Temp Pulse Resp BP Pulse Ox 97.7 F 84 16 120/82 92 10/18/19 14:11 10/18/19 14:17 10/18/19 14:17 10/18/19 14:11 10/18/19 14:17 Intake & Output 10/17/19 10/18/19 10/19/19 06:59 06:59 06:59 Intake Total 3340 2216 1000 Output Total 1250 4050 Balance 2090 -1834 1000 Weight 229 lb 0.964 oz 228 lb 9.91 oz General appearance: PRESENT: no acute distress, well-developed, well-nourished Head exam: PRESENT: atraumatic, normocephalic Eye exam: PRESENT: conjunctiva pink, EOMI, PERRLA. ABSENT: scleral icterus Ear exam: PRESENT: normal external ear exam Mouth exam: PRESENT: moist, tongue midline Neck exam: ABSENT: carotid bruit, JVD, lymphadenopathy, thyromegaly Respiratory exam: PRESENT: rhonchi. ABSENT: rales, wheezes Cardiovascular exam: PRESENT: irregular rhythm. ABSENT: diastolic murmur, rubs, systolic murmur Pulses: PRESENT: normal dorsalis pedis pul GI/Abdominal exam: PRESENT: normal bowel sounds, soft. ABSENT: distended, guarding, mass, organolmegaly, rebound, tenderness Rectal exam: PRESENT: deferred Extremities exam: PRESENT: full ROM. ABSENT: calf tenderness, clubbing, pedal edema Neurological exam: PRESENT: alert, awake, oriented to person, oriented to place, oriented to time, oriented to situation, CN II-XII grossly intact. ABSENT: motor sensory deficit Results Laboratory Results: WBC 10.6 10^3/uL (4.0-10.5) H 10/17/19 07:04 RBC 4.53 10^6/uL (3.72-5.28) 10/17/19 07:04 Hgb 12.6 g/dL (12.0-15.5) 10/17/19 07:04 Hct 39.1 % (36.0-47.0) 10/17/19 07:04 MCV 86 fl (80-97) 10/17/19 07:04 MCH 27.7 pg (27.0-33.4) 10/17/19 07:04 MCHC 32.1 g/dL (32.0-36.0) 10/17/19 07:04 RDW 15.2 % (11.5-14.0) H 10/17/19 07:04 Plt Count 243 10^3/uL (150-450) 10/17/19 07:04 Lymph % (Auto) 10.5 % (13-45) L 10/14/19 05:33 [place] % (Auto) 3.4 % (3-13) 10/14/19 05:33 Eos % (Auto) 0.0 % (0-6) 10/14/19 05:33 Baso % (Auto) 0.1 % (0-2) 10/14/19 05:33 Absolute Neuts (auto) 7.1 10^3/uL (1.7-8.2) 10/14/19 05:33 Absolute Lymphs (auto) 0.9 10^3/uL (0.5-4.7) 10/14/19 05:33 Absolute Monos (auto) 0.3 10^3/uL (0.1-1.4) 10/14/19 05:33 Absolute Eos (auto) 0.0 10^3/uL (0.0-0.6) 10/14/19 05:33 Absolute Basos (auto) 0.0 10^3/uL (0.0-0.2) 10/14/19 05:33 Seg Neutrophils % 86.0 % (42-78) H 10/14/19 05:33 PT 13.3 SEC (11.4-15.4) 10/13/19 09:18 INR 1.01 10/13/19 09:18 APTT 37.3 SEC (23.5-35.8) H 10/13/19 09:18 D-Dimer 0.35 ug/mL (0.00-0.50) 10/16/19 09:37 Sodium 139.8 mmol/L (137-145) 10/14/19 05:33 Potassium 4.5 mmol/L (3.6-5.0) 10/14/19 05:33 Chloride 102 mmol/L (98-107) 10/14/19 05:33 Carbon Dioxide 26 mmol/L (22-30) 10/14/19 05:33 Anion Gap 12 (5-19) 10/14/19 05:33 BUN 20 mg/dL (7-20) 10/14/19 05:33 Creatinine 0.78 mg/dL (0.52-1.25) 10/14/19 05:33 Est GFR ( Amer) > 60 (>60) 10/14/19 05:33 Est GFR (MDRD) Non-Af > 60 (>60) 10/14/19 05:33 Glucose 243 mg/dL (75-110) H 10/14/19 05:33 Calcium 9.6 mg/dL (8.4-10.2) 10/14/19 05:33 Magnesium 2.3 mg/dL (1.6-2.3) 10/14/19 05:33 Total Bilirubin 0.6 mg/dL (0.2-1.3) 10/14/19 05:33 Direct Bilirubin 0.3 mg/dL (0.0-0.4) 10/14/19 05:33 Neonat Total Bilirubin Not Reportable 10/14/19 05:33 Neonat Direct Bilirubin Not Reportable 10/14/19 05:33 Neonat Indirect Bili Not Reportable 10/14/19 05:33 AST 17 U/L (14-36) 10/14/19 05:33 ALT 16 U/L (<35) 10/14/19 05:33 Alkaline Phosphatase 100 U/L (38-126) 10/14/19 05:33 Creatine Kinase 29 U/L (30-135) L 10/13/19 09:18 CK-MB (CK-2) 1.03 ng/mL (<4.55) 10/13/19 09:18 Troponin I < 0.012 ng/mL 10/13/19 09:18 NT-Pro-B Natriuret Pep 2020 pg/mL (<125) H 10/13/19 09:18 Total Protein 6.7 g/dL (6.3-8.2) 10/14/19 05:33 Albumin 3.7 g/dL (3.5-5.0) 10/14/19 05:33 TSH 0.47 uIU/mL (0.47-4.68) 10/14/19 05:33 Free T4 1.08 ng/dL (0.78-2.19) 10/14/19 05:33 Free T3 pg/mL 2.29 pg/mL (2.77-5.27) L 10/14/19 05:33 Urine Color STRAW 10/17/19 18:25 Urine Appearance CLEAR 10/17/19 18:25 Urine pH 6.0 (5.0-9.0) 10/17/19 18:25 Ur Specific [place] 1.008 10/17/19 18:25 Urine Protein NEGATIVE mg/dL (NEGATIVE) 10/17/19 18:25 Urine Glucose (UA) NEGATIVE mg/dL (NEGATIVE) 10/17/19 18:25 Urine Ketones NEGATIVE mg/dL (NEGATIVE) 10/17/19 18:25 Urine Blood NEGATIVE (NEGATIVE) 10/17/19 18:25 Urine Nitrite NEGATIVE (NEGATIVE) 10/17/19 18:25 Urine Bilirubin NEGATIVE (NEGATIVE) 10/17/19 18:25 Urine Urobilinogen NEGATIVE mg/dL (<2.0) 10/17/19 18:25 Ur Leukocyte Esterase TRACE (NEGATIVE) H 10/17/19 18:25 Urine WBC (Auto) 2 /HPF 10/17/19 18:25 Urine RBC (Auto) 2 /HPF 10/17/19 18:25 Squamous Epi Cells Auto 1 /HPF 10/17/19 18:25 Urine Mucus (Auto) RARE /LPF 10/16/19 20:44 Urine Ascorbic Acid NEGATIVE (NEGATIVE) 10/17/19 18:25 10/13/19 09:18 CK-MB (CK-2) 1.03 Troponin I < 0.012 NT-Pro-B Natriuret Pep 2020 H Impressions: Chest X-Ray 10/13/19 08:56 IMPRESSION: No acute findings Chest X-Ray 10/17/19 07:00 IMPRESSION: Cardiomegaly and chronic bilateral subpleural reticular opacities without a superimposed acute cardiopulmonary process. Hip X-Ray 10/18/19 05:05 IMPRESSION: No acute abnormality. Stroke Is this a Stroke Patient?: No Acute Heart Failure - Is this a Heart Failure Patient?: No
== END 2019-10-18 14:50 | disposition home or self-care (01) | DRG 308 ==
LOC: ER 08:43 → EH 12:03 → 3N 13:46
PROVIDERS: ADMIT Internal Medicine; ATTEND Internal Medicine
DX: I48.0 Paroxysmal atrial fibrillation (principal); J96.01 Acute respiratory failure with hypoxia; I50.43 Acute on chronic combined systolic (congestive) and diastolic (congestive) heart failure; J44.1 Chronic obstructive pulmonary disease with (acute) exacerbation; J44.0 Chronic obstructive pulmonary disease with (acute) lower respiratory infection; E78.5 Hyperlipidemia, unspecified; E22.0 Acromegaly and pituitary gigantism; I11.0 Hypertensive heart disease with heart failure; J20.9 Acute bronchitis, unspecified; K21.9 Gastro-esophageal reflux disease without esophagitis; F41.9 Anxiety disorder, unspecified; B96.5 Pseudomonas (aeruginosa) (mallei) (pseudomallei) as the cause of diseases classified elsewhere; I44.7 Left bundle-branch block, unspecified; G47.33 Obstructive sleep apnea (adult) (pediatric); Z96.641 Presence of right artificial hip joint; E78.00 Pure hypercholesterolemia, unspecified; Z79.01 Long term (current) use of anticoagulants; Z79.1 Long term (current) use of non-steroidal anti-inflammatories (NSAID); Z79.51 Long term (current) use of inhaled steroids; Z79.52 Long term (current) use of systemic steroids; Z79.899 Other long term (current) drug therapy; Z87.891 Personal history of nicotine dependence; Z88.1 Allergy status to other antibiotic agents
CPT/HCPCS: 36415; 71045; 80053; 81001; 82550; 82553; 83735; 83880; 84439; 84443; 84481; 84484; 85025; 85027; 85379; 85610; 85730; 87070; 87077; 87186; 87205; 93005; 93010; 94640; 96365; 96375; 96376; 99285; J1644; J1650; J1885; J2920; J2930; J3490; J7030; J7512; J7620

== ENCOUNTER 2020-01-03 03:08 | Inpatient (IN) | payer MEDICARE, OTHER ==
[2020-01-03] MEDS ORDERED: IPRATROPIUM/ALBUTEROL 0.5-2.5 MG/3 ML AMPUL NEB ONE (03:36)
[2020-01-03 03:56] LABS: ABSOLUTE BASOPHILS # (AUTO) 0.1 10^3/uL (0.0-0.2); ABSOLUTE EOSINOPHILS # (AUTO) 1.8 10^3/uL (0.0-0.6); ABSOLUTE MONOCYTES (AUTO) 1.1 10^3/uL (0.1-1.4); ABSOLUTE NEUT (AUTO) 8.3 10^3/uL (1.7-8.2); BASOPHILS % (AUTO) 0.7 % (0-2); EOSINOPHILS % (AUTO) 13.4 % (0-6); HEMATOCRIT 40.7 % (36.0-47.0); HEMOGLOBIN 13.4 g/dL (12.0-15.5); LYMPHOCYTES % (AUTO) 15.2 % (13-45); MEAN CORPUSCULAR HEMOGLOBIN 28.5 pg (27.0-33.4); MEAN CORPUSCULAR HGB CONC 32.9 g/dL (32.0-36.0); MEAN CORPUSCULAR VOLUME 87 fl (80-97); MONOCYTES % (AUTO) 8.2 % (3-13); PLATELET COUNT 305 10^3/uL (150-450); RED CELL DISTRIBUTION WIDTH 15.2 % (11.5-14.0); SEGMENTED NEUTROPHILS % (AUTO) 62.5 % (42-78); TOTAL CELLS COUNTED % (AUTO) 100 %; VENOUS BLOOD BASE EXCESS 0.4 mmol/L; VENOUS BLOOD HCO3 27.6 mmol/L (20-32); VENOUS BLOOD PCO2 55.1 mmHg (35-63); VENOUS BLOOD PH 7.32 (7.30-7.42); WHITE BLOOD COUNT 13.2 10^3/uL (4.0-10.5)
[2020-01-03 04:03] LABS: ARTERIAL BLOOD BASE EXCESS -1.7 mmol/L; ARTERIAL BLOOD H2CO3 1.24 mmol/L (1.05-1.35); ARTERIAL BLOOD HCO3 23.4 mmol/L (20-24); ARTERIAL BLOOD O2 SATURATION 98.1 % (94-98); ARTERIAL BLOOD PCO2 41.1 mmHg (35-45); ARTERIAL BLOOD PH 7.37 (7.35-7.45); ARTERIAL BLOOD PO2 114.7 mmHg (80-100); ARTERIAL BLOOD TOTAL CO2 24.7 mmol/L (21-25)
[2020-01-03 04:05] LABS: ARTERIAL BLOOD FIO2 60%
[2020-01-03 04:14] LABS: ALBUMIN 3.8 g/dL (3.5-5.0); ALKALINE PHOSPHATASE 110 U/L (38-126); ANION GAP 9 (5-19); ASPARTATE AMINO TRANSFERASE 23 U/L (14-36); BILIRUBIN,DIRECT 0.1 mg/dL (0.0-0.4); BILIRUBIN,TOTAL 0.7 mg/dL (0.2-1.3); BLOOD UREA NITROGEN 19 mg/dL (7-20); CALCIUM 9.5 mg/dL (8.4-10.2); CARBON DIOXIDE 28 mmol/L (22-30); CHLORIDE 97 mmol/L (98-107); GLUCOSE 131 mg/dL (75-110); POTASSIUM 3.7 mmol/L (3.6-5.0)
[2020-01-03 04:27] LABS: NT PRO BNP 258 pg/mL (<125)
--- NOTE | 2020-01-03 04:28 | ER Document Report ---
Entered by GISELA WONG SCRIBE 01/03/20 0313 Acting as scribe for:TATA MA IV, MD ED Respiratory Problem - General Chief Complaint: Respiratory Distress Stated Complaint: RESPIRATORY DISTRESS Time Seen by Provider: 01/03/20 03:12 Primary Care Provider: KATHLEEN WHITFIELD MD [Primary Care Provider] - Follow up as needed Mode of Arrival: Ambulatory Information source: Patient Notes: This 74-year-old female patient with COPD presents to the emergency department today with complaints of respiratory distress. According to EMS, the patient had an oxygen saturation of 71% on room air when they arrived at the patient's residence. Patient received multiple interventions prior to the hospital including Solu-Medrol, A&A treatments, and magnesium. TRAVEL OUTSIDE OF THE [place] IN LAST 30 DAYS: No - Related Data Allergies/Adverse Reactions: levofloxacin [From Levaquin] Adverse Reaction (Intermediate, Verified 01/03/20 03:15) joint pain Past Medical History - General Information source: Patient - Social History Smoking Status: Never Smoker Cigarette use (# per day): No Frequency of alcohol use: None Drug Abuse: None Lives with: Family Family History: Reviewed & Not Pertinent, CAD - Past Medical History Cardiac Medical History: Reports: Hx Congestive Heart Failure, Hx Hypercholesterolemia, Hx Hypertension Pulmonary Medical History: Reports: Hx Bronchitis, Hx COPD - NO OXYGEN, Hx Respiratory Failure - Acute Hypoxic Resp. Failure 12/05/15, Hx Sleep Apnea - has CPAP, doesn't use GI Medical History: Reports: Hx Gastroesophageal Reflux Disease Musculoskeletal Medical History: Reports Hx Arthritis - ELLEN. KNEES Psychiatric Medical History: Reports: Hx Anxiety Past Surgical History: Reports: Hx Hysterectomy, Hx Orthopedic Surgery - bunions bilat. right hip replacement. - Immunizations Hx Diphtheria, Pertussis, Tetanus Vaccination: Yes Hx Pneumococcal Vaccination: 09/26/16 Review of Systems - Review of Systems Constitutional: No symptoms reported EENT: No symptoms reported Cardiovascular: No symptoms reported Respiratory: See HPI, Short of breath, Wheezing Gastrointestinal: No symptoms reported Genitourinary: No symptoms reported Female Genitourinary: No symptoms reported Musculoskeletal: No symptoms reported Skin: No symptoms reported Hematologic/Lymphatic: No symptoms reported Neurological/Psychological: No symptoms reported -: Yes All other systems reviewed and negative Physical Exam - Vital signs Vitals: Temp Pulse Resp BP Pulse Ox 97.6 F 82 21 H 107/78 93 02/08/20 03:11 01/03/20 03:11 01/03/20 03:11 01/03/20 03:11 01/03/20 03:11 - Notes Notes: Physical Exam: General: Alert, mild to moderate respiratory distress. HEENT: Normocephalic. Atraumatic. PERRL. Extraocular movements intact. Oropharynx clear. Neck: Supple. Non-tender. Respiratory: Moderate respiratory distress, on CPAP. Accessory muscle usage. Tachypneic. Extremely diminished, more so on the left. Cardiovascular: Regular rate and rhythm. Abdominal: Normal Inspection. Non-tender. No distension. Normal Bowel Sounds. Back: No gross abnormalities. Extremities: Moves all four extremities. Upper extremities: Normal inspection. Normal ROM. Lower extremities: Normal inspection. No edema. Normal ROM. Neurological: Normal cognition. AAOx4. Normal speech. Psychological: Normal affect. Normal Mood. Skin: Warm. Dry. Normal color. Course - Vital Signs Vital signs: Temp Pulse Resp BP Pulse Ox 97.6 F 82 23 H 114/70 99 01/03/20 03:11 01/03/20 03:11 01/03/20 05:01 01/03/20 05:01 01/03/20 05:01 - Laboratory Result Diagrams: 01/03/20 03:37 01/03/20 03:37 Laboratory results interpreted by me: 01/03/20 01/03/20 01/03/20 03:37 03:37 03:37 WBC 13.2 H RDW 15.2 H Eos % (Auto) 13.4 H Absolute Neuts (auto) 8.3 H Absolute Eos (auto) 1.8 H ABG pO2 ABG O2 Saturation Sodium 134.3 L Chloride 97 L Est GFR (MDRD) Non-Af 50 L Glucose 131 H NT-Pro-B Natriuret Pep 258 H 01/03/20 03:47 WBC RDW Eos % (Auto) Absolute Neuts (auto) Absolute Eos (auto) ABG pO2 114.7 H ABG O2 Saturation 98.1 H Sodium Chloride Est GFR (MDRD) Non-Af Glucose NT-Pro-B Natriuret Pep - Diagnostic Test Radiology reviewed: Reports reviewed - Consults dr. francy priest Time consulted: 05:36 Reason for consultation: 01/03/20 05:36 copd exacerbation, on bipap Consulted provider: will see as inpatient Discharge - Discharge Clinical Impression: COPD (chronic obstructive pulmonary disease) Qualifiers: COPD type: unspecified COPD Qualified Code(s): J44.9 - Chronic obstructive pulmonary disease, unspecified Condition: Good Disposition: ADMITTED OBSERVATION Admitting Provider: Hayden (Hospitalist) Unit Admitted: Telemetry Referrals: KATHLEEN WHITFIELD MD [Primary Care Provider] - Follow up as needed I personally performed the services described in the documentation, reviewed and edited the documentation which was dictated to the scribe in my presence, and it accurately records my words and actions.
--- NOTE | 2020-01-03 04:38 | RADIOLOGY REPORT (SQ) ---
EXAM DESCRIPTION: XR CHEST 1 VIEW COMPLETED DATE/TME: 01/03/2020 03:35 CLINICAL HISTORY: 74 years, Female, dyspnea COMPARISON: 10/17/2019 chest NUMBER OF VIEWS: 1 TECHNIQUE: Portable chest LIMITATIONS: None. FINDINGS: The heart is enlarged but stable. Osteopenia. Suspected small bibasilar effusions and/or pleural thickening. Minor fibrotic changes in the lung apices IMPRESSION: Cardiomegaly. Minor fibrotic changes in the lung apices. Suspected small bibasilar effusions and/or pleural thickening copyright 2010 [employer]- All Rights Reserved
[2020-01-03 04:39] LABS: TROPONIN I < 0.012 ng/mL
[2020-01-03] MEDS ORDERED: ACETAMINOPHEN 325 MG TABLET PO PRN (05:38)
[2020-01-03] MEDS ORDERED: IPRATROPIUM/ALBUTEROL 0.5-2.5 MG/3 ML AMPUL NEB PRN (05:38)
[2020-01-03] MEDS ORDERED: NICOTINE 7 MG/24 HR PATCH.TD24 TD PRN (05:41)
[2020-01-03] MEDS ORDERED: DILTIAZEM HCL 60 MG TABLET PO SCH (06:00)
--- NOTE | 2020-01-03 06:04 | PDOC H&P ---
History of Present Illness Admission Date/PCP: 01/03/20 05:51 KATHLEEN WHITFIELD Patient complains of: Shortness of breath History of Present Illness: PETER VERONICA is a 74 year old female with a past medical history of obesity, GERD, obstructive sleep apnea, COPD, chronic bronchitis, paroxysmal atrial fibrillation on Xarelto and Lopressor. She presents with 2 days of shortness of breath and nonproductive cough she believes a worsening of her chronic bronchiti s. Denying rhinorrhea, sore throat or uncontrolled acid reflux. She admits to compliance with medication regiment but discontinued CPAP use for several weeks. She denies fever chest pain nausea vomiting. EMS finds her with pulse oximetry of 70% she received Solu-Medrol, BiPAP, continuous albuterol treatment with magnesium but remains with significant AA gradient on 60% BiPAP.. She does admit improvement but is transferred to the hospitalist Past Medical History Cardiac Medical History: Reports: Hyperlipidema, Hypertension Denies: Atrial Fibrillation, Coronary Artery Disease, Myocardial Infarction, Peripheral Vascular Disease, Heart Murmur Pulmonary Medical History: Reports: Bronchitis, Chronic Obstructive Pulmonary Disease (COPD) - NO OXYGEN, Respiratory Failure - Acute Hypoxic Resp. Failure 12/05/15, Sleep Apnea - has CPAP, doesn't use Denies: Asthma, Pneumonia, Tuberculosis Neurological Medical History: Denies: Seizures Endocrine Medical History: Denies: Diabetes Mellitus Type 2, Hyperthyroidism, Hypothyroidism Renal/ Medical History: Denies: End Stage Renal Disease GI Medical History: Reports: Gastroesophageal Reflux Disease Denies: Crohn's Disease, Hiatal Hernia Musculoskeltal Medical History: Reports: Arthritis - ELLEN. KNEES Denies: Fibromyalgia Psychiatric Medical History: Denies: Depression Hematology: Denies: Anemia Past Surgical History Past Surgical History: Reports: Hysterectomy, Orthopedic Surgery - bunions bilat. right hip replacement. Denies: Amputation, Appendectomy, Section, Cholecystectomy, Colostomy, Coronary Artery Bypass Graft, Gastric Bypass Surgery, Herniorrhaphy, Mastectomy, Pacemaker, Tonsillectomy, Tubal Ligation Social History Information Source: Patient Lives with: Family Smoking Status: Former Smoker Electronic Cigarette use?: No Frequency of Alcohol Use: None Hx Recreational Drug Use: No Drugs: None Hx Prescription Drug Abuse: No - Advance Directive Resuscitation Status: Full Code Family History Family History: CAD, Hypertension Parental Family History Reviewed: Yes Children Family History Reviewed: Yes Sibling(s) Family History Reviewed.: Yes Medication/Allergy Home Medications: Acetaminophen [Tylenol Extra Strength 500 mg Tablet] 1,000 mg PO Q6HP PRN 10/14/19 Albuterol Sulfate [Proair HFA Inhalation Aerosol 8.5 gm MDI] 2 puff IH Q4HP PRN 10/14/19 Ascorbic Acid [Vitamin C] 1,000 mg PO DAILY 10/14/19 Cyanocobalamin (Vitamin B-12) [Vitamin B-12 1000 mcg Tablet] 1,000 mcg PO DAILY 10/14/19 Dicyclomine HCl [Bentyl 20 mg Tablet] 20 mg PO BID 10/14/19 Fluticasone/Umeclidin/Vilanter [Trelegy 100-62.5-25 Mcg Ellipta 14 Dose/Dpi] 1 puff IH DAILY 10/14/19 Magnesium Oxide [Mag-Ox 400 mg Tablet] 400 mg PO DAILY 10/14/19 Multivitamin [Multiple Vitamins] 1 tab PO DAILY 10/14/19 Pegvisomant [Somavert] 30 mg SQ MOTUTHFRSA 10/14/19 Ciprofloxacin HCl [Cipro 500 mg Tablet] 500 mg PO Q12 4 Days #8 tablet 10/18/19 Diltiazem HCl [Cardizem 30 mg Tablet] 30 mg PO Q8 #90 tablet 10/18/19 Guaifenesin [Mucinex Sr 600 mg Tablet.sa] 600 mg PO Q12 #8 tablet.sa 10/18/19 Losartan Potassium [Cozaar 50 mg Tablet] 50 mg PO DAILY #30 tablet 10/18/19 Metoprolol Tartrate [Lopressor 50 mg Tablet] 50 mg PO Q12 #60 tablet 10/18/19 Prednisone [Deltasone 10 mg Tablet] 10 mg PO BID 4 Days #8 tablet 10/18/19 Rivaroxaban [Xarelto] 20 mg PO QHS #30 tablet 10/18/19 Allergies/Adverse Reactions: levofloxacin [From Levaquin] Adverse Reaction (Intermediate, Verified 01/03/20 03:15) joint pain Review of Systems Constitutional: ABSENT: chills, fever(s), headache(s), weight gain, weight loss Eyes: ABSENT: visual disturbances Ears: ABSENT: hearing changes Cardiovascular: ABSENT: chest pain, dyspnea on exertion, edema, orthropnea, palpitations Respiratory: ABSENT: cough, hemoptysis Gastrointestinal: ABSENT: abdominal pain, constipation, diarrhea, hematemesis, hematochezia, nausea, vomiting Genitourinary: ABSENT: dysuria, hematuria Musculoskeletal: ABSENT: joint swelling Integumentary: ABSENT: rash, wounds Neurological: ABSENT: abnormal gait, abnormal speech, confusion, dizziness, focal weakness, syncope Psychiatric: ABSENT: anxiety, depression, homidical ideation, suicidal ideation Endocrine: ABSENT: cold intolerance, heat intolerance, polydipsia, polyuria Hematologic/Lymphatic: ABSENT: easy bleeding, easy bruising Physical Exam Vital Signs: Temp Pulse Resp BP Pulse Ox 97.6 F 82 23 H 114/70 99 01/03/20 03:11 01/03/20 03:11 01/03/20 05:01 01/03/20 05:01 01/03/20 05:01 Intake & Output 01/01/20 01/02/20 01/03/20 11:59 11:59 11:59 Weight 90.718 kg General appearance: PRESENT: cooperative, mild distress, obese, well-developed, well-nourished Head exam: PRESENT: atraumatic, normocephalic Eye exam: PRESENT: conjunctiva pink, EOMI, PERRLA. ABSENT: scleral icterus Ear exam: PRESENT: normal external ear exam Mouth exam: PRESENT: moist, tongue midline Neck exam: ABSENT: carotid bruit, JVD, lymphadenopathy, thyromegaly Respiratory exam: PRESENT: accessory muscle use, crackles, prolonged expiratory phas, retraction, symmetrical, tachypnea. ABSENT: rhonchi Cardiovascular exam: PRESENT: RRR. ABSENT: diastolic murmur, rubs, systolic murmur Pulses: PRESENT: normal dorsalis pedis pul Vascular exam: PRESENT: normal capillary refill GI/Abdominal exam: PRESENT: normal bowel sounds, soft. ABSENT: distended, guarding, mass, organolmegaly, rebound, tenderness Rectal exam: PRESENT: deferred Extremities exam: PRESENT: full ROM. ABSENT: calf tenderness, clubbing, pedal edema Neurological exam: PRESENT: alert, awake, oriented to person, oriented to place, oriented to time, oriented to situation, CN II-XII grossly intact. ABSENT: motor sensory deficit Psychiatric exam: PRESENT: appropriate affect, normal mood. ABSENT: homicidal ideation, suicidal ideation Skin exam: PRESENT: dry, intact, warm. ABSENT: cyanosis, rash Results Laboratory Results: 01/03/20 03:37 01/03/20 03:37 01/03/20 01/03/20 01/03/20 03:37 03:37 03:37 WBC 13.2 H RBC 4.70 Hgb 13.4 Hct 40.7 MCV 87 MCH 28.5 MCHC 32.9 RDW 15.2 H Plt Count 305 Seg Neutrophils % 62.5 Carbonic Acid HCO3/H2CO3 Ratio ABG pH ABG pCO2 ABG pO2 ABG HCO3 ABG O2 Saturation ABG Base Excess VBG pH 7.32 VBG pCO2 55.1 VBG HCO3 27.6 VBG Base Excess 0.4 FiO2 Sodium 134.3 L Potassium 3.7 Chloride 97 L Carbon Dioxide 28 Anion Gap 9 BUN 19 Creatinine 1.07 Est GFR ( Amer) > 60 Glucose 131 H Calcium 9.5 Total Bilirubin 0.7 AST 23 Alkaline Phosphatase 110 Total Protein 7.0 Albumin 3.8 01/03/20 03:47 WBC RBC Hgb Hct MCV MCH MCHC RDW Plt Count Seg Neutrophils % Carbonic Acid 1.24 HCO3/H2CO3 Ratio 18:1 ABG pH 7.37 ABG pCO2 41.1 ABG pO2 114.7 H ABG HCO3 23.4 ABG O2 Saturation 98.1 H ABG Base Excess -1.7 VBG pH VBG pCO2 VBG HCO3 VBG Base Excess FiO2 60% Sodium Potassium Chloride Carbon Dioxide Anion Gap BUN Creatinine Est GFR ( Amer) Glucose Calcium Total Bilirubin AST Alkaline Phosphatase Total Protein Albumin 01/03/20 03:37 Troponin I < 0.012 NT-Pro-B Natriuret Pep 258 H Impressions: Chest X-Ray 01/03/20 03:35 IMPRESSION: Cardiomegaly. Minor fibrotic changes in the lung apices. Suspected small bibasilar effusions and/or pleural thickening copyright 2011 [employer]- All Rights Reserved Assessment and Plan - Diagnosis (1) COPD (chronic obstructive pulmonary disease) Qualifiers: COPD type: unspecified COPD Qualified Code(s): J44.9 - Chronic obstructive pulmonary disease, unspecified Is this a current diagnosis for this admission?: Yes Plan: Supplemental oxygen, flutter valve, prednisone, albuterol and Atrovent (2) Acute bronchitis Is this a current diagnosis for this admission?: Yes Plan: Prednisone and doxycycline (3) Gastroesophageal reflux Qualifiers: Esophagitis presence: esophagitis presence not specified Qualified Code(s): K21.9 - Gastro-esophageal reflux disease without esophagitis Is this a current diagnosis for this admission?: Yes Plan: Proton pump inhibitor (4) Obstructive sleep apnea Is this a current diagnosis for this admission?: Yes Plan: CPAP and education - Time Time Spent with patient: 25-34 minutes - Inpatient Certification Medical Necessity: Need Close Monitoring Due to Risk of Patient Decompensation
[2020-01-03] MEDS: METOPROLOL TARTRATE 50 MG TABLET PO SCH ×3 (06:09→23:06)
[2020-01-03] MEDS: CHLORPHENIRAMINE MALEATE 4 MG TABLET PO SCH ×4 (06:10→23:07)
[2020-01-03] MEDS: DOXYCYCLINE HYCLATE 100 MG TABLET PO SCH ×2 (06:10→23:06)
[2020-01-03] MEDS: PREDNISONE 20 MG TABLET PO SCH ×2 (06:10→18:29)
[2020-01-03] MEDS: HEPARIN SOD (PORCINE) 5,000 UNIT/ML 1 ML VIAL SUBCUT SCH ×4 (06:12→23:35)
[2020-01-03] MEDS: LEVALBUTEROL HCL NEB 1.25 MG/3 ML AMPUL NEB SCH ×3 (07:43→19:38)
[2020-01-03] MEDS: IPRATROPIUM BROMIDE 0.02% NEB 0.5 MG/2.5 ML AMPUL NEB SCH ×3 (07:43→19:38)
[2020-01-03] MEDS ORDERED: INFLUENZA QUAD (6MOS+) 2019-20 VAC 0.5 ML SYR IM ONE (08:26)
[2020-01-03] MEDS: FLUTICASONE NASAL SPRAY 50 MCG/SPRY 120 SPRAY/16 GM NASL SCH ×2 (11:35→23:06)
--- NOTE | 2020-01-03 11:43 | Progress Note ---
Provider Note Provider Note: Patient admitted through the emergency room early this morning at approximately 0600 for apparent COPD exacerbation. She is sitting up in bed and appears to be in no distress this morning. Patient's home meds of significance include Cozaar 50 mg daily Lasix 20 mg every morning Lopressor 50 mg every 12 hours and Xarelto 20 mg daily. Hospital patient is on prednisone 20 mg twice daily doxycycline every 12
--- NOTE | 2020-01-03 21:17 | EKG REPORT ---
SEVERITY:- ABNORMAL ECG - SINUS RHYTHM ATYPICAL LBBB NONSPECIFIC IVCD WITH LAD LVH WITH SECONDARY REPOLARIZATION ABNORMALITY : Confirmed by: Alyssa Coley MD 03-Jan-2020 21:17:03
[2020-01-04] MEDS: LEVALBUTEROL HCL NEB 1.25 MG/3 ML AMPUL NEB SCH ×2 (02:02→07:59)
[2020-01-04] MEDS: IPRATROPIUM BROMIDE 0.02% NEB 0.5 MG/2.5 ML AMPUL NEB SCH ×2 (02:02→07:59)
[2020-01-04] MEDS: HEPARIN SOD (PORCINE) 5,000 UNIT/ML 1 ML VIAL SUBCUT SCH ×3 (05:17→21:51)
[2020-01-04 06:00] LABS: ABSOLUTE NEUT (AUTO) 10.7 10^3/uL (1.7-8.2); HEMATOCRIT 36.3 % (36.0-47.0); HEMOGLOBIN 12.1 g/dL (12.0-15.5); LYMPHOCYTES % (AUTO) 8.2 % (13-45); MEAN CORPUSCULAR HEMOGLOBIN 28.5 pg (27.0-33.4); MEAN CORPUSCULAR HGB CONC 33.2 g/dL (32.0-36.0); MEAN CORPUSCULAR VOLUME 86 fl (80-97); MONOCYTES % (AUTO) 8.1 % (3-13); PLATELET COUNT 334 10^3/uL (150-450); RED BLOOD COUNT 4.23 10^6/uL (3.72-5.28); SEGMENTED NEUTROPHILS % (AUTO) 83.7 % (42-78); TOTAL CELLS COUNTED % (AUTO) 100 %; WHITE BLOOD COUNT 12.7 10^3/uL (4.0-10.5)
[2020-01-04 06:19] LABS: ANION GAP 9 (5-19); BLOOD UREA NITROGEN 19 mg/dL (7-20); CALCIUM 9.7 mg/dL (8.4-10.2); CARBON DIOXIDE 27 mmol/L (22-30); CHLORIDE 99 mmol/L (98-107); GLUCOSE 165 mg/dL (75-110); POTASSIUM 5.3 mmol/L (3.6-5.0)
[2020-01-04] MEDS: PANTOPRAZOLE SODIUM 20 MG TABLET.DR PO SCH (06:29)
[2020-01-04] MEDS: FLUTICASONE NASAL SPRAY 50 MCG/SPRY 120 SPRAY/16 GM NASL SCH ×2 (09:22→22:04)
[2020-01-04] MEDS: PREDNISONE 20 MG TABLET PO SCH (09:22)
[2020-01-04] MEDS: DOXYCYCLINE HYCLATE 100 MG TABLET PO SCH ×2 (09:22→22:04)
[2020-01-04] MEDS: METOPROLOL TARTRATE 50 MG TABLET PO SCH ×2 (09:22→21:53)
--- NOTE | 2020-01-04 10:02 | PDOC PROGRESS REPORT ---
Subjective Progress Note for:: 01/04/20 Reason For Visit: ACUTE BRONCHITIS COPD EXACERBATION TACHYCARDIA 01/04/2020 COPD exacerbation, chronic bronchitis, pretension, chronic paroxysmal atrial fib Physical Exam Vital Signs: Temp Pulse Resp BP Pulse Ox 98.3 F 69 18 114/64 99 01/04/20 08:00 01/04/20 08:00 01/04/20 08:00 01/04/20 08:00 01/04/20 08:00 Intake & Output 01/03/20 01/04/20 01/05/20 06:59 06:59 06:59 Intake Total 702 Balance 702 Weight 90.718 kg 97.6 kg General appearance: PRESENT: mild distress, other - Sitting in bed with no oxygen talking in full sentences Respiratory exam: PRESENT: rhonchi, wheezes Cardiovascular exam: PRESENT: RRR. ABSENT: diastolic murmur, rubs, systolic murmur Neurological exam: PRESENT: alert, awake, oriented to person, oriented to place, oriented to time, oriented to situation, CN II-XII grossly intact. ABSENT: motor sensory deficit Psychiatric exam: PRESENT: appropriate affect, normal mood. ABSENT: homicidal ideation, suicidal ideation Results Laboratory Results: 01/04/20 05:04 01/04/20 05:04 01/04/20 01/04/20 05:04 05:04 WBC 12.7 H RBC 4.23 Hgb 12.1 Hct 36.3 MCV 86 MCH 28.5 MCHC 33.2 RDW 15.0 H Plt Count 334 Seg Neutrophils % 83.7 H Sodium 134.8 L Potassium 5.3 H Chloride 99 Carbon Dioxide 27 Anion Gap 9 BUN 19 Creatinine 0.79 Est GFR ( Amer) > 60 Glucose 165 H Calcium 9.7 01/03/20 03:37 Troponin I < 0.012 NT-Pro-B Natriuret Pep 258 H Impressions: Chest X-Ray 01/03/20 03:35 IMPRESSION: Cardiomegaly. Minor fibrotic changes in the lung apices. Suspected small bibasilar effusions and/or pleural thickening copyright 2010 [email or web address]- All Rights Reserved Assessment and Plan - Diagnosis (1) Chronic bronchitis Is this a current diagnosis for this admission?: Yes (2) Chronic paroxysmal atrial fib Is this a current diagnosis for this admission?: Yes (3) COPD exacerbation Is this a current diagnosis for this admission?: Yes (4) Hypertension Is this a current diagnosis for this admission?: Yes (5) Obesity Is this a current diagnosis for this admission?: Yes - Plan Summary Summary: 01/04/2020 Is in the room today and states that she has been coughing and having these shortness of breath episodes for several months now.. Tells me she was on amoxicillin back around Jessika time and did not go [place] shopping because she was so short of breath. She tells me she saw her clinic assistant at [facility] about a month ago. She tells me that her coughing is worse now since seeing the clinic assistant. mentions also that patient has not been getting any better for several months now. Patient tells me that amoxicillin and Z-Paks do not work for her and she is allergic to Levaquin Change her steroids to Solu-Medrol every 8 going to order Mucinex and going to add IV Rocephin I am going to increase her nebulizer treatments to every 4 hours - Time Time Spent with patient: 25-34 minutes
[2020-01-04] MEDS: GUAIFENESIN 600 MG TABLET.SA PO SCH ×2 (11:07→21:52)
[2020-01-04] MEDS: METHYLPREDNISOLONE INJ 40 MG/1 ML SDV IV SCH ×3 (11:08→21:52)
[2020-01-04] MEDS: CEFTRIAXONE 1 GM/D5W RTU 1 GM/50 ML RTUPB IV SCH ×2 (11:08→21:52)
[2020-01-04] MEDS: IPRATROPIUM/ALBUTEROL 0.5-2.5 MG/3 ML AMPUL NEB SCH ×3 (11:19→19:22)
[2020-01-05] MEDS: IPRATROPIUM/ALBUTEROL 0.5-2.5 MG/3 ML AMPUL NEB SCH ×6 (00:03→20:50)
[2020-01-05] MEDS: METHYLPREDNISOLONE INJ 40 MG/1 ML SDV IV SCH ×3 (05:14→21:49)
[2020-01-05] MEDS: HEPARIN SOD (PORCINE) 5,000 UNIT/ML 1 ML VIAL SUBCUT SCH ×3 (05:14→21:49)
[2020-01-05] MEDS: PANTOPRAZOLE SODIUM 20 MG TABLET.DR PO SCH (05:14)
[2020-01-05 05:41] LABS: ABSOLUTE LYMPHOCYTES (AUTO) 0.9 10^3/uL (0.5-4.7); ABSOLUTE MONOCYTES (AUTO) 0.3 10^3/uL (0.1-1.4); ABSOLUTE NEUT (AUTO) 9.9 10^3/uL (1.7-8.2); BASOPHILS % (AUTO) 0.1 % (0-2); HEMOGLOBIN 11.9 g/dL (12.0-15.5); LYMPHOCYTES % (AUTO) 8.2 % (13-45); MEAN CORPUSCULAR HEMOGLOBIN 28.6 pg (27.0-33.4); MEAN CORPUSCULAR HGB CONC 33.2 g/dL (32.0-36.0); MEAN CORPUSCULAR VOLUME 86 fl (80-97); MONOCYTES % (AUTO) 2.7 % (3-13); PLATELET COUNT 319 10^3/uL (150-450); RED BLOOD COUNT 4.17 10^6/uL (3.72-5.28); RED CELL DISTRIBUTION WIDTH 15.2 % (11.5-14.0); TOTAL CELLS COUNTED % (AUTO) 100 %; WHITE BLOOD COUNT 11.2 10^3/uL (4.0-10.5)
[2020-01-05 06:08] LABS: ANION GAP 9 (5-19); BLOOD UREA NITROGEN 22 mg/dL (7-20); CALCIUM 9.8 mg/dL (8.4-10.2); CARBON DIOXIDE 28 mmol/L (22-30); CHLORIDE 100 mmol/L (98-107); GLUCOSE 145 mg/dL (75-110); POTASSIUM 5.2 mmol/L (3.6-5.0)
[2020-01-05] MEDS: FLUTICASONE NASAL SPRAY 50 MCG/SPRY 120 SPRAY/16 GM NASL SCH ×2 (09:50→21:48)
[2020-01-05] MEDS: GUAIFENESIN 600 MG TABLET.SA PO SCH ×2 (09:51→21:49)
[2020-01-05] MEDS: DOXYCYCLINE HYCLATE 100 MG TABLET PO SCH ×2 (09:51→21:50)
[2020-01-05] MEDS: CEFTRIAXONE 1 GM/D5W RTU 1 GM/50 ML RTUPB IV SCH ×2 (09:51→22:00)
[2020-01-05] MEDS: METOPROLOL TARTRATE 50 MG TABLET PO SCH ×2 (09:51→21:50)
--- NOTE | 2020-01-05 12:14 | PDOC PROGRESS REPORT ---
Subjective Progress Note for:: 01/05/20 Reason For Visit: ACUTE BRONCHITIS COPD EXACERBATION TACHYCARDIA 01/05/2020 Patient was admitted for increased shortness of breath. Patient has a long history of COPD. History is confusing as it pertains to the duration of this complaint Physical Exam Vital Signs: Temp Pulse Resp BP Pulse Ox 98.9 F 79 20 125/86 H 87 L 01/05/20 08:00 01/05/20 08:56 01/05/20 08:56 01/05/20 08:00 01/05/20 08:56 Intake & Output 01/04/20 01/05/20 01/06/20 06:59 06:59 06:59 Intake Total 702 720 Balance 702 720 Weight 97.6 kg 99.2 kg General appearance: PRESENT: no acute distress, other - Sitting up on the edge of the bed HEENT in full sentences in no acute distress She complains of mucus draining down the back of her throat and not being able to expectorate it Respiratory exam: PRESENT: decreased breath sounds, wheezes - The wheezes that I hear are probably chronic in nature. She does not sound tight Cardiovascular exam: PRESENT: RRR. ABSENT: diastolic murmur, rubs, systolic murmur Neurological exam: PRESENT: alert, awake, oriented to person, oriented to place, oriented to time, oriented to situation, CN II-XII grossly intact. ABSENT: motor sensory deficit Psychiatric exam: PRESENT: appropriate affect, normal mood. ABSENT: homicidal ideation, suicidal ideation Results Laboratory Results: 01/05/20 04:26 01/05/20 04:26 01/05/20 01/05/20 04:26 04:26 WBC 11.2 H RBC 4.17 Hgb 11.9 L Hct 36.0 MCV 86 MCH 28.6 MCHC 33.2 RDW 15.2 H Plt Count 319 Seg Neutrophils % 89.0 H Sodium 137.3 Potassium 5.2 H Chloride 100 Carbon Dioxide 28 Anion Gap 9 BUN 22 H Creatinine 0.79 Est GFR ( Amer) > 60 Glucose 145 H Calcium 9.8 01/03/20 03:37 Troponin I < 0.012 NT-Pro-B Natriuret Pep 258 H Impressions: Chest X-Ray 01/03/20 03:35 IMPRESSION: Cardiomegaly. Minor fibrotic changes in the lung apices. Suspected small bibasilar effusions and/or pleural thickening copyright 2010 [employer]- All Rights Reserved Assessment and Plan - Diagnosis (1) Chronic bronchitis Is this a current diagnosis for this admission?: Yes (2) Chronic paroxysmal atrial fib Is this a current diagnosis for this admission?: Yes (3) COPD exacerbation Is this a current diagnosis for this admission?: Yes (4) Hypertension Is this a current diagnosis for this admission?: Yes (5) Obesity Is this a current diagnosis for this admission?: Yes - Plan Summary Summary: 01/04/2020 Is in the room today and states that she has been coughing and having these shortness of breath episodes for several months now.. Tells me she was on amoxicillin back around Jess[place] time and did not go [place] shopping because she was so short of breath. She tells me she saw her roller inspector and mender at [facility] about a month ago. She tells me that her coughing is worse now since seeing the roller inspector and mender. mentions also that patient has not been getting any better for several months now. Patient tells me that amoxicillin and Z-Paks do not work for her and she is allergic to Levaquin Change her steroids to Solu-Medrol every 8 going to order Mucinex and going to add IV Rocephin I am going to increase her nebulizer treatments to every 4 hours 01/05/2020 When patient was admitted her first oxygen saturations were 93 to 94% basically on 4 L nasal cannula. He now is on 2 L of nasal cannula and her sats appear to be 87 to 90%. Also I am going to have them draw blood gas. Clinically patient does not appear to be in distress. I truly wonder what her baseline oxygen satu ration is. She tells me she cannot even go out to the car from her house without getting short of breath patient tells me that just walking around the house causes her to be short of breath. Patient tells me she pretty much has restricted herself to doing nothing couple of months because of her shortness of breath. I did call patient's roller inspector and mender at [facility], Dr. Kareen Leon, and sun castro to her nurse. Patient was seen October 31, 2019. She has also had recent bronchoscopy. Patient is classified as COPD stage II according to the nurse. So according to the nurse she has not been prescribed any recent antibiotics though the patient states she took amoxicillin recently. Nurse states that the roller inspector and mender will frequently write prescriptions for the patient's to take as needed. The nurse also tells me that according to the notes the patient has not expressed any worries that her COPD is not getting better or worsening. Of asked the patient today if she feels better now than when she was admitted. Says she does not. According to the EMS notes in the ER notes the patient's oxygen saturation was in the 70% when she called EMS. Patient has not been prescribed oxygen at home. Chest x-ray on admission showed cardiomegaly small bibasilar effusions and/or pleural thickening and minor fibrotic changes in the apices. Going to order a CT scan of the chest without contrast. She is currently on doxycycline, Rocephin, Solu-Medrol. White count today is trending down 11.2 from admission value of 13.2. BNP is normal at 258 Will make changes based on CT scan of the chest. Personally feel that this is more of a chronic problem acute illness. - Time Time Spent with patient: 35 or more minutes
--- NOTE | 2020-01-05 14:04 | RADIOLOGY REPORT (SQ) ---
EXAM DESCRIPTION: CT CHEST WITHOUT COMPLETED DATE/TIME: 01/05/2020 12:47 pm REASON FOR STUDY: COPD, pulmonary fibrosis D50.8 OTHER IRON DEFICIENCY ANEMIAS J84.112 IDIOPATHIC PULMONARY FIBROSIS COMPARISON: Chest CT 03/01/2017, 07/08/2018 TECHNIQUE: CT scan performed of the chest without intravenous contrast. Images reviewed with lung, soft tissue and bone windows. Reconstructed coronal and sagittal MPR images reviewed. All images st ored on PACS. All CT scanners at this facility use dose modulation, iterative reconstruction, and/or weight based d osing when appropriate to reduce radiation dose to as low as reasonably achievable (ALARA). [facility]: Dose Right [facility]: CareDose [facility]: Dose Right [facility]: Teradose 4D [facility]: [employer] RADIATION DOSE: CT Rad equipment meets quality standard of care and radiation dose reduction techniq ues were employed. CTDIvol: 18.0 mGy. DLP: 676 mGy-cm. mGy. LIMITATIONS: No technical limitations. FINDINGS: LUNGS AND PLEURA: Increased interstitial markings are present around the periphery of both lung bases with mild thickening of the interlobular septa. This is apical predominant and similar c ompared to prior studies. Mild stable right upper lobe bronchiectasis. No acute infiltrates. No pleural effusion. No pneumothorax. No worrisome nodules. HILAR AND MEDIASTINAL STRUCTURES: No identified masses or abnormal nodes. No obvious aneurysm. HEART AND VASCULAR STRUCTURES: No aneurysm. No pericardial effusion. UPPER ABDOMEN: Stable bilateral upper pole hemorrhagic and nonhemorrhagic cyst and intrarenal nonobst ructive calculi. THYROID AND OTHER SOFT TISSUES: No masses. No adenopathy. BONES: No significant finding. HARDWARE: None in the chest. OTHER: No other significant findings. IMPRESSION: Mild stable increased interstitial markings both upper lobes with right upper lobe bronc hiectasis. TECHNICAL DOCUMENTATION: JOB ID: [id number] Quality ID # [id number]: Final reports with documentation of one or more dose reduction techniques (e.g., Au tomated exposure control, adjustment of the mA and/or kV according to patient size, use of iterative reconstruction technique) 2010 [employer]- All Rights Reserved Reading location - IP/workstation name: [email or web address]
[2020-01-06] MEDS: IPRATROPIUM/ALBUTEROL 0.5-2.5 MG/3 ML AMPUL NEB SCH ×6 (00:35→19:14)
[2020-01-06] MEDS: GUAIFENESIN/D-METHORPHAN (200-20 MG) SYRUP 10 ML PO PRN ×3 (01:03→21:25)
[2020-01-06] MEDS: PANTOPRAZOLE SODIUM 20 MG TABLET.DR PO SCH (05:28)
[2020-01-06] MEDS: METHYLPREDNISOLONE INJ 40 MG/1 ML SDV IV SCH ×3 (05:28→21:20)
[2020-01-06] MEDS: HEPARIN SOD (PORCINE) 5,000 UNIT/ML 1 ML VIAL SUBCUT SCH ×3 (05:29→21:16)
[2020-01-06] MEDS: GUAIFENESIN 600 MG TABLET.SA PO SCH ×2 (11:01→21:20)
[2020-01-06] MEDS: LOSARTAN POTASSIUM 50 MG TABLET PO SCH (11:01)
[2020-01-06] MEDS: METOPROLOL TARTRATE 50 MG TABLET PO SCH ×2 (11:01→21:20)
[2020-01-06] MEDS: DOXYCYCLINE HYCLATE 100 MG TABLET PO SCH ×2 (11:01→21:20)
[2020-01-06] MEDS: FLUTICASONE NASAL SPRAY 50 MCG/SPRY 120 SPRAY/16 GM NASL SCH ×2 (11:02→21:20)
--- NOTE | 2020-01-06 17:19 | PDOC CONSULTATION ---
Consultation Consult Date: 01/06/20 Provider Consulted: ANDRZEJ MCQUEEN Consult reason:: History of atrial fibrillation, bronchitis presently History of Present Illness Admission Date/PCP: 01/05/20 13:04 KATHLEEN WHITFIELD Patient complains of: Cough and dyspnea History of Present Illness: PETER VERONICA is a 74 year old female Who is known to me from the office. Active problems 1. COPD 2. Atrial fibrillation status post cardioversion 3. Systemic hypertension 4. Nicotine dependence in remission 5. Obesity 6. Systemic anticoagulation-rivaroxaban 7. Left bundle branch block 8. Dilated nonischemic cardiomyopathy-ejection fraction normalized with therapy Patient was admitted secondary to respiratory complaints probably precipitated on account of acute flare and COPD with acute bronchitis symptoms. Has been started on antibiotics. She already feels better. She does have dyspnea on exertion. Telemetry shows maintained sinus rhythm. Of note she had similar e pisode in October which precipitated atrial fibrillation. At that time she was managed with antibiotics and bronchodilator therapy. She continued to be in atrial fibrillation post discharge. Thus we elected to proceed with transesophageal echocardiogram which showed preserved ejection fraction and no left atrial thrombi. She was cardioverted successfully and since then has continued to maintain sinus rhythm. Systemic anticoagulation is recommended for her due to increased risk of stroke. Patient does not smoke any longer. No familial illnesses reported. Past Medical History Cardiac Medical History: Reports: Congestive Heart Failure, Hyperlipidema, Hypertension Denies: Atrial Fibrillation, Coronary Artery Disease, Myocardial Infarction, Peripheral Vascular Disease, Heart Murmur Pulmonary Medical History: Reports: Bronchitis, Chronic Obstructive Pulmonary Disease (COPD) - NO OXYGEN, Pneumonia, Respiratory Failure - Acute Hypoxic Resp. Failure 12/05/15, Sleep Apnea - has CPAP, doesn't use Denies: Asthma, Tuberculosis Neurological Medical History: Denies: Seizures Endocrine Medical History: Denies: Diabetes Mellitus Type 2, Hyperthyroidism, Hypothyroidism Renal/ Medical History: Denies: End Stage Renal Disease GI Medical History: Reports: Gastroesophageal Reflux Disease Denies: Crohn's Disease, Hiatal Hernia Musculoskeltal Medical History: Reports: Arthritis - ELLEN. KNEES Denies: Fibromyalgia Psychiatric Medical History: Denies: Depression Hematology: Denies: Anemia Past Surgical History Past Surgical History: Reports: Hysterectomy, Orthopedic Surgery - bunions bilat. right hip replacement. Denies: Amputation, Appendectomy, Section, Cholecystectomy, Colostomy, Coronary Artery Bypass Graft, Gastric Bypass Surgery, Herniorrhaphy, Mastectomy, Pacemaker, Tonsillectomy, Tubal Ligation Social History Lives with: Family Smoking Status: Former Smoker Electronic Cigarette use?: No Frequency of Alcohol Use: None Hx Recreational Drug Use: No Drugs: None Hx Prescription Drug Abuse: No - Advance Directive Resuscitation Status: Full Code Family History Family History: CAD, Hypertension Parental Family History Reviewed: No - No familial illnesses reported to wy Children Family History Reviewed: NA Sibling(s) Family History Reviewed.: NA Medication/Allergy Home Medications: Albuterol Sulfate [Proair Hfa Inhalation Aerosol 8.5 gm Mdi] 2 puff IH Q6HP PRN 01/03/20 Furosemide [Lasix 20 mg Tablet] 20 mg PO QAM 01/03/20 Losartan Potassium [Cozaar 50 mg Tablet] 50 mg PO DAILY 01/03/20 Metoprolol Tartrate [Lopressor 50 mg Tablet] 50 mg PO Q12 01/03/20 Promethazine HCl 6.25 mg PO Q6HP PRN 01/03/20 Rivaroxaban [Xarelto] 20 mg PO DAILY 01/03/20 Allergies/Adverse Reactions: levofloxacin [From Levaquin] Adverse Reaction (Intermediate, Verified 01/03/20 03:15) joint pain Review of Systems Constitutional: ABSENT: as per HPI, anorexia, chills, fatigue, fever(s), headache(s), night sweats, weakness, weight gain, weight loss, other Cardiovascular: PRESENT: dyspnea on exertion Respiratory: PRESENT: cough, dyspnea Neurological: PRESENT: as per HPI Psychiatric: PRESENT: as per HPI Physical Exam Vital Signs: Temp Pulse Resp BP Pulse Ox 98.8 F 73 16 132/63 H 91 L 01/06/20 11:46 01/06/20 15:55 01/06/20 15:55 01/06/20 11:46 01/06/20 15:55 Intake & Output 01/05/20 01/06/20 01/07/20 06:59 06:59 06:59 Intake Total 720 1120 Balance 720 1120 Weight 99.2 kg 97.8 kg General appearance: PRESENT: no acute distress, cooperative, obese, well- developed Head exam: PRESENT: atraumatic, normocephalic Eye exam: PRESENT: EOMI Mouth exam: PRESENT: moist Respiratory exam: PRESENT: crackles, prolonged expiratory phas, rhonchi, symmetrical, unlabored Cardiovascular exam: PRESENT: RRR, +S1, +S2 Pulses: PRESENT: normal radial pulses GI/Abdominal exam: PRESENT: soft Rectal exam: PRESENT: deferred Neurological exam: PRESENT: alert, awake, oriented to person, oriented to place, oriented to time, oriented to situation Psychiatric exam: PRESENT: appropriate affect Skin exam: PRESENT: dry, intact, normal color Results Laboratory Results: 01/05/20 04:26 01/05/20 04:26 01/03/20 03:37 Troponin I < 0.012 NT-Pro-B Natriuret Pep 258 H EKG Comments: Twelve-lead EKG 01/03/2020 Independently reviewed by me. Sinus rhythm, nonspecific IVCD, 81 bpm, Telemetry shows sinus rhythm with artifact Impressions: Chest X-Ray 01/03/20 03:35 IMPRESSION: Cardiomegaly. Minor fibrotic changes in the lung apices. Suspected small bibasilar effusions and/or pleural thickening copyright 2011 [employer]- All Rights Reserved Chest CT 01/05/20 00:00 IMPRESSION: Mild stable increased interstitial markings both upper lobes with right upper lobe bronchiectasis. Status: Image reviewed by me - Prominent interstitial markings. No evidence of pulmonary edema. Assessment & Plan - Diagnosis (1) COPD (chronic obstructive pulmonary disease) Qualifiers: COPD type: COPD with acute exacerbation Qualified Code(s): J44.1 - Chronic obstructive pulmonary disease with (acute) exacerbation Plan: Treatment per primary team Patient appears to be responding with antibiotics. Encourage incentive spirometry. Mucolytic agents. (2) Chronic paroxysmal atrial fib Is this a current diagnosis for this admission?: Yes Plan: Patient had atrial fibrillation at the end of last year in a similar setting with acute respiratory infection and bronchitis. At that time we had pursued a YEN cardioversion which restored sinus rhythm and since then patient has been maintained on systemic anticoagulation. No antiarrhythmic was used. Patient should be continued on systemic anticoagulation with rivaroxaban 20 mg daily Additional DVT prophylaxis can be omitted if patient is on systemic anticoagulation. Presently she is maintaining sinus rhythm.
[2020-01-06] MEDS: RIVAROXABAN 10 MG TABLET PO SCH (17:26)
--- NOTE | 2020-01-06 17:44 | PDOC PROGRESS REPORT ---
Subjective Progress Note for:: 01/06/20 Subjective:: The patient is a 74-year-old female with a past medical history of COPD, chronic bronchitis, PAF on Xarelto, GERD, TOÑA with noncompliant CPAP use who was admitted 01/03/20 for acute respiratory failure with hypoxia secondary to acute bronchitis in patient with chronic COPD. The patient was seen on afternoon rounds with multiple family members present. She was found sitting up to the recliner, comfortably, on supplemental oxygen by nasal cannula. The patient reports that, overall, she is feeling much better. However, she does continue to have significant dyspnea on exertion following minimal activity requiring several minutes of rest to recover. The patient does note that her symptoms are not as dramatic when utilizing oxygen while ambulating. She is followed by Dr. Leon, pulmonology. I spoke with Dr. Leon's nurse, Cheyenne today. Per Cheyenne, the patient has moderate bronchiectasis with frequent respiratory infections resulting in acute respiratory failure. She is also followed by Dr. Venegas for PAF; spoke with Dr. Venegas today who was satisfied with her current cardiac status. Reason For Visit: ACUTE BRONCHITIS COPD EXACERBATION Physical Exam Vital Signs: Temp Pulse Resp BP Pulse Ox 98.8 F 73 16 132/63 H 91 L 01/06/20 11:46 01/06/20 15:55 01/06/20 15:55 01/06/20 11:46 01/06/20 15:55 Intake & Output 01/05/20 01/06/20 01/07/20 06:59 06:59 06:59 Intake Total 720 1120 Balance 720 1120 Weight 99.2 kg 97.8 kg General appearance: PRESENT: no acute distress, cooperative, well-developed, well-nourished Head exam: PRESENT: atraumatic, normocephalic Eye exam: PRESENT: conjunctiva pink, EOMI, PERRLA. ABSENT: scleral icterus Ear exam: PRESENT: normal external ear exam Mouth exam: PRESENT: moist, tongue midline Neck exam: ABSENT: carotid bruit, JVD, lymphadenopathy, thyromegaly Respiratory exam: PRESENT: clear to auscultation yves, symmetrical, unlabored, other - Supplemental oxygen by nasal cannula. ABSENT: rales, rhonchi, wheezes Cardiovascular exam: PRESENT: RRR, +S1, +S2. ABSENT: diastolic murmur, rubs, systolic murmur Pulses: PRESENT: normal dorsalis pedis pul Vascular exam: PRESENT: normal capillary refill GI/Abdominal exam: PRESENT: normal bowel sounds, soft. ABSENT: distended, guarding, mass, organolmegaly, rebound, tenderness Rectal exam: PRESENT: deferred Extremities exam: PRESENT: full ROM. ABSENT: calf tenderness, clubbing, pedal edema Musculoskeletal exam: PRESENT: ambulatory Neurological exam: PRESENT: alert, awake, oriented to person, oriented to place, oriented to time, oriented to situation, CN II-XII grossly intact. ABSENT: motor sensory deficit Psychiatric exam: PRESENT: appropriate affect, normal mood. ABSENT: homicidal ideation, suicidal ideation Skin exam: PRESENT: dry, intact, warm. ABSENT: cyanosis, rash Results Laboratory Results: 01/05/20 04:26 01/05/20 04:26 01/03/20 03:37 Troponin I < 0.012 NT-Pro-B Natriuret Pep 258 H Impressions: Chest X-Ray 01/03/20 03:35 IMPRESSION: Cardiomegaly. Minor fibrotic changes in the lung apices. Suspected small bibasilar effusions and/or pleural thickening copyright 2011 [employer]- All Rights Reserved Chest CT 01/05/20 00:00 IMPRESSION: Mild stable increased interstitial markings both upper lobes with right upper lobe bronchiectasis. Assessment and Plan - Diagnosis (1) Acute respiratory failure with hypoxia Is this a current diagnosis for this admission?: Yes Plan: Secondary to acute on chronic bronchitis, bronchiectasis, and COPD Improved, however, patient continues to be oxygen dependent. We will continue supplemental oxygen as needed to maintain saturations greater than 89%. Continue scheduled and as needed nebulizer treatments. Continue Flonase. Continue Solu-Medrol; begin weaning towards prednisone. Scheduled and as needed guaifenesin. Aggressive pulmonary toilet. Discharge planning is consulted for probable need for home O2. May benefit from pulmonary rehab. (2) Chronic paroxysmal atrial fib Is this a current diagnosis for this admission?: Yes Plan: Currently in normal sinus rhythm. Dr. Venegas is consulted; appreciate his evaluation and recommendations. Continues on home dose metoprolol. Continue home dose Xarelto. (3) COPD (chronic obstructive pulmonary disease) Qualifiers: COPD type: unspecified COPD Qualified Code(s): J44.9 - Chronic obstructive pulmonary disease, unspecified Is this a current diagnosis for this admission?: Yes Plan: Chronic COPD. Followed by Dr. Leon, pulmonology, as an outpatient. CT chest shows chronic interstitial changes without acute findings. Continue supplemental oxygen as needed to maintain oxygen saturations greater than 89%. As needed nebulizer treatments. Aggressive pulmonary toilet. (4) Chronic bronchitis Is this a current diagnosis for this admission?: Yes Plan: As above. (5) COPD exacerbation Is this a current diagnosis for this admission?: Yes (6) Obesity Qualifiers: Body mass index: BMI 34.0-34.9 Is this a current diagnosis for this admission?: Yes Plan: BMI 34.8. Dietary discretion and lifestyle modification are encouraged. (7) Gastroesophageal reflux Qualifiers: Esophagitis presence: esophagitis presence not specified Qualified Code(s): K21.9 - Gastro-esophageal reflux disease without esophagitis Is this a current diagnosis for this admission?: Yes Plan: Protonix every morning. (8) Hypertension Is this a current diagnosis for this admission?: Yes Plan: Well controlled on home regiment of metoprolol, losartan, and furosemide. Cardiac diet. - Time Time Spent with patient: 25-34 minutes Medications reviewed and adjusted accordingly: Yes Anticipated discharge: Home Within: within 24 hours
[2020-01-07] MEDS: IPRATROPIUM/ALBUTEROL 0.5-2.5 MG/3 ML AMPUL NEB SCH ×6 (00:48→19:51)
[2020-01-07] MEDS: HEPARIN SOD (PORCINE) 5,000 UNIT/ML 1 ML VIAL SUBCUT SCH ×3 (05:05→21:05)
[2020-01-07] MEDS: PANTOPRAZOLE SODIUM 20 MG TABLET.DR PO SCH (05:28)
[2020-01-07] MEDS: METHYLPREDNISOLONE INJ 40 MG/1 ML SDV IV SCH ×3 (05:28→21:05)
[2020-01-07] MEDS: METOPROLOL TARTRATE 50 MG TABLET PO SCH ×2 (09:34→21:05)
[2020-01-07] MEDS: DOXYCYCLINE HYCLATE 100 MG TABLET PO SCH ×2 (09:34→21:04)
[2020-01-07] MEDS: RIVAROXABAN 10 MG TABLET PO SCH (09:35)
[2020-01-07] MEDS: LOSARTAN POTASSIUM 50 MG TABLET PO SCH (09:35)
[2020-01-07] MEDS: GUAIFENESIN 600 MG TABLET.SA PO SCH ×2 (09:35→21:05)
[2020-01-07] MEDS: FUROSEMIDE 20 MG TABLET PO SCH (09:35)
[2020-01-07] MEDS: GUAIFENESIN/D-METHORPHAN (200-20 MG) SYRUP 10 ML PO PRN ×3 (09:38→21:07)
[2020-01-07] MEDS: FLUTICASONE NASAL SPRAY 50 MCG/SPRY 120 SPRAY/16 GM NASL SCH ×2 (09:45→21:05)
[2020-01-07] MEDS ORDERED: ACETYLCYSTEINE 20% SOLN 800 MG/4 ML VIAL.NEB NEB ONE (11:30)
--- NOTE | 2020-01-07 12:35 | RADIOLOGY REPORT (SQ) ---
EXAM DESCRIPTION: CHEST SINGLE VIEW COMPLETED DATE/TIME: 01/07/2020 10:56 am REASON FOR STUDY: hypoxia, dyspnea COMPARISON: 01/03/2020 EXAM PARAMETERS: NUMBER OF VIEWS: One view. TECHNIQUE: Single frontal radiographic view of the chest acquired. RADIATION DOSE: NA LIMITATIONS: None. FINDINGS: LUNGS AND PLEURA: There is haziness over the left lung field. This could represent a pleu ral effusion that is layered out posteriorly. No focal infiltrate. No mass. MEDIASTINUM AND HILAR STRUCTURES: No masses. Contour normal. HEART AND VASCULAR STRUCTURES: Heart size is borderline. No checo pulmonary edema. BONES: No acute findings. HARDWARE: None in the chest. OTHER: No other significant finding. IMPRESSION: Borderline cardiomegaly without pulmonary edema. Cannot exclude a pleural effusion on t he left. Consider decubitus films. TECHNICAL DOCUMENTATION: JOB ID: [id number] 2010 [employer]- All Rights Reserved Reading location - IP/workstation name: [email or web address]
--- NOTE | 2020-01-07 14:07 | PDOC PROGRESS REPORT ---
Subjective Progress Note for:: 01/07/20 Subjective:: Right-sided pleuritic pain probably on account of coughing. No chest pain otherwise. Reason For Visit: ACUTE BRONCHITIS COPD EXACERBATION Physical Exam Vital Signs: Temp Pulse Resp BP Pulse Ox 98.4 F 77 16 134/57 H 90 L 01/06/20 23:29 01/07/20 13:27 01/07/20 13:27 01/06/20 23:29 01/07/20 13:27 Intake & Output 01/06/20 01/07/20 01/08/20 06:59 06:59 06:59 Intake Total 1120 620 Balance 1120 620 Weight 97.8 kg 98.8 kg General appearance: PRESENT: no acute distress, obese, well-developed Head exam: PRESENT: atraumatic, normocephalic Eye exam: PRESENT: conjunctiva pink, EOMI Respiratory exam: PRESENT: crackles, decreased breath sounds, prolonged expiratory phas, rhonchi, symmetrical, unlabored Cardiovascular exam: PRESENT: RRR, +S1, +S2 Pulses: PRESENT: normal radial pulses GI/Abdominal exam: PRESENT: soft Rectal exam: PRESENT: deferred Musculoskeletal exam: PRESENT: normal inspection Neurological exam: PRESENT: alert, awake, oriented to person, oriented to place, oriented to time, oriented to situation Psychiatric exam: PRESENT: appropriate affect Skin exam: PRESENT: dry, intact, normal color Results Laboratory Results: 01/05/20 04:26 01/05/20 04:26 01/03/20 03:37 Troponin I < 0.012 NT-Pro-B Natriuret Pep 258 H Impressions: Chest CT 01/05/20 00:00 IMPRESSION: Mild stable increased interstitial markings both upper lobes with right upper lobe bronchiectasis. Chest X-Ray 01/07/20 00:00 IMPRESSION: Borderline cardiomegaly without pulmonary edema. Cannot exclude a pleural effusion on the left. Consider decubitus films. Assessment & Plan - Diagnosis (1) COPD (chronic obstructive pulmonary disease) Qualifiers: COPD type: COPD with acute exacerbation Qualified Code(s): J44.1 - Chronic obstructive pulmonary disease with (acute) exacerbation Is this a current diagnosis for this admission?: Yes Plan: COPD with acute exacerbation. Acute bronchitis Responding to antibiotic therapy Continue incentive spirometer Continue pulmonary toilet Continue bronchodilator therapy as needed. (2) Chronic paroxysmal atrial fib Is this a current diagnosis for this admission?: Yes Plan: Patient status post recent cardioversion and maintaining sinus rhythm. Would recommend continuing systemic anticoagulation with rivaroxaban.
[2020-01-07 15:59] LABS: ARTERIAL BLOOD BASE EXCESS 0.3 mmol/L; ARTERIAL BLOOD H2CO3 1.24 mmol/L (1.05-1.35); ARTERIAL BLOOD HCO3 25.1 mmol/L (20-24); ARTERIAL BLOOD O2 SATURATION 93.3 % (94-98); ARTERIAL BLOOD PCO2 41.2 mmHg (35-45); ARTERIAL BLOOD PO2 66.8 mmHg (80-100); ARTERIAL BLOOD TOTAL CO2 26.3 mmol/L (21-25)
--- NOTE | 2020-01-07 16:06 | RADIOLOGY REPORT (SQ) ---
EXAM DESCRIPTION: CHEST SINGLE VIEW COMPLETED DATE/TIME: 01/07/2020 2:25 pm REASON FOR STUDY: LEFT LAT decubitus view DUE TO POSSIBLE PLEURAL EFFUSION ON LEFT SIDE COMPARISON: Same day radiograph CT 01/05/2012 EXAM PARAMETERS: NUMBER OF VIEWS: One view. TECHNIQUE: Left lateral decubitus views were obtained of the chest. RADIATION DOSE: NA LIMITATIONS: None. FINDINGS: LUNGS AND PLEURA: No significant effusion on the lateral decubitus films. No appreciable pneumothorax. Dependent left basilar opacities, likely atelectasis. MEDIASTINUM AND HILAR STRUCTURES: Stable. HEART AND VASCULAR STRUCTURES: Enlarged, stable. BONES: No acute findings. HARDWARE: None in the chest. OTHER: No other significant finding. IMPRESSION: No significant effusion. Stable enlarged cardiac silhouette. TECHNICAL DOCUMENTATION: JOB ID: [id number] 2010 [employer]- All Rights Reserved Reading location - IP/workstation name: [email or web address]
[2020-01-07 16:28] LABS: ARTERIAL BLOOD FIO2 NC 5
--- NOTE | 2020-01-07 17:02 | PDOC PROGRESS REPORT ---
Subjective Progress Note for:: 01/07/20 Subjective:: The patient is a 74-year-old female with a past medical history of COPD, chronic bronchitis, PAF on Xarelto, GERD, TOÑA with noncompliant CPAP use who was admitted 01/03/20 for acute respiratory failure with hypoxia secondary to acute bronchitis in patient with chronic COPD. The patient was seen on morning rounds with present. She was found sitting up to the edge of the bed on supplemental oxygen by nasal cannula. She does have increased oxygen needs today. On room air she had oxygen saturations of 82 to 84%. She was placed on supplemental oxygen by nasal cannula 2 L/min and titrated upward to obtain SPO2 of 92%; 5 L/min. She is feeling worse today with increased dyspnea on minimal exertion, increased cough, and now associated anxiety related to air hunger. She also reports right-sided chest wall pain with inspiration and coughing. She notes increased sputum production today as compared to yesterday. Reassurance provided. She otherwise denies fever, chills, chest pain, abdominal pain, nausea vomiting and diarrhea. She has no other questions or concerns at this time. No concerns per nursing. Reason For Visit: ACUTE BRONCHITIS COPD EXACERBATION Physical Exam Vital Signs: Temp Pulse Resp BP Pulse Ox 98.4 F 67 16 134/57 H 90 L 01/06/20 23:29 01/07/20 14:00 01/07/20 13:27 01/06/20 23:29 01/07/20 13:27 Intake & Output 01/06/20 01/07/20 01/08/20 06:59 06:59 06:59 Intake Total 1120 620 Balance 1120 620 Weight 97.8 kg 98.8 kg General appearance: PRESENT: cooperative, mild distress, obese, well-developed, well-nourished Head exam: PRESENT: atraumatic, normocephalic Eye exam: PRESENT: conjunctiva pink, EOMI, PERRLA. ABSENT: scleral icterus Ear exam: PRESENT: normal external ear exam Mouth exam: PRESENT: moist, tongue midline Respiratory exam: PRESENT: prolonged expiratory phas, rhonchi, symmetrical, wheezes, other - Supplemental oxygen via nasal cannula. ABSENT: rales Cardiovascular exam: PRESENT: RRR, +S1, +S2. ABSENT: diastolic murmur, rubs, systolic murmur Vascular exam: PRESENT: normal capillary refill GI/Abdominal exam: PRESENT: normal bowel sounds, soft. ABSENT: distended, guarding, mass, organolmegaly, rebound, tenderness Rectal exam: PRESENT: deferred Extremities exam: PRESENT: full ROM. ABSENT: calf tenderness, clubbing, pedal edema Musculoskeletal exam: PRESENT: ambulatory Neurological exam: PRESENT: alert, awake, oriented to person, oriented to place, oriented to time, oriented to situation, CN II-XII grossly intact. ABSENT: motor sensory deficit Psychiatric exam: PRESENT: anxious, appropriate affect, normal mood. ABSENT: homicidal ideation, suicidal ideation Skin exam: PRESENT: dry, intact, warm. ABSENT: cyanosis, rash Results Laboratory Results: 01/05/20 04:26 01/05/20 04:26 01/07/20 15:38 Carbonic Acid 1.24 HCO3/H2CO3 Ratio 20:1 ABG pH 7.40 ABG pCO2 41.2 ABG pO2 66.8 L ABG HCO3 25.1 H ABG O2 Saturation 93.3 L ABG Base Excess 0.3 FiO2 NC 5 01/03/20 03:37 Troponin I < 0.012 NT-Pro-B Natriuret Pep 258 H Impressions: Chest CT 01/05/20 00:00 IMPRESSION: Mild stable increased interstitial markings both upper lobes with right upper lobe bronchiectasis. Chest X-Ray 01/07/20 00:00 IMPRESSION: No significant effusion. Stable enlarged cardiac silhouette. Assessment and Plan - Diagnosis (1) Acute respiratory failure with hypoxia Is this a current diagnosis for this admission?: Yes Plan: Secondary to acute on chronic bronchitis, bronchiectasis, and COPD Slightly worse today with increased oxygen needs. Follow-up chest x-ray shows Dependent left basilar opacity; likely atelectasis. ABG shows compensated respiratory acidosis. Patient is admitted to the medical floor on continuous cardiac telemetry. We will continue supplemental oxygen as needed to maintain saturations greater than 89%. Continue scheduled and as needed nebulizer treatments. Twice daily Mucomyst nebulizer treatment Continue Flonase. Continue Solu-Medrol Scheduled and as needed guaifenesin. Start Singulair and Daliresp Aggressive pulmonary toilet. Discharge planning is consulted for home O2. May benefit from pulmonary rehab. (2) Chronic paroxysmal atrial fib Is this a current diagnosis for this admission?: Yes Plan: Currently in normal sinus rhythm. Dr. Venegas is consulted; appreciate his evaluation and recommendations. Continues on home dose metoprolol. Continue home dose Xarelto. (3) COPD (chronic obstructive pulmonary disease) Qualifiers: COPD type: unspecified COPD Qualified Code(s): J44.9 - Chronic obstructive pulmonary disease, unspecified Is this a current diagnosis for this admission?: Yes Plan: Chronic COPD. Followed by Dr. Leon, pulmonology, as an outpatient. CT chest shows chronic interstitial changes without acute findings. Continue supplemental oxygen as needed to maintain oxygen saturations greater than 89%. As needed nebulizer treatments. Aggressive pulmonary toilet. (4) Chronic bronchitis Is this a current diagnosis for this admission?: Yes Plan: As above. (5) COPD exacerbation Is this a current diagnosis for this admission?: Yes Plan: Management as in #1 (6) Obesity Qualifiers: Body mass index: BMI 34.0-34.9 Is this a current diagnosis for this admission?: Yes Plan: BMI 34.8. Dietary discretion and lifestyle modification are encouraged. (7) Gastroesophageal reflux Qualifiers: Esophagitis presence: esophagitis presence not specified Qualified Code(s): K21.9 - Gastro-esophageal reflux disease without esophagitis Is this a current diagnosis for this admission?: Yes Plan: Protonix every morning. (8) Hypertension Is this a current diagnosis for this admission?: Yes Plan: Well controlled on home regiment of metoprolol, losartan, and furosemide. Cardiac diet. - Time Time Spent with patient: 25-34 minutes Medications reviewed and adjusted accordingly: Yes Anticipated discharge: Home
[2020-01-07] MEDS: ACETYLCYSTEINE 20% SOLN 800 MG/4 ML VIAL.NEB NEB SCH (19:51)
[2020-01-07] MEDS ORDERED: MONTELUKAST SODIUM 10 MG TABLET PO SCH (22:00)
[2020-01-08] MEDS: IPRATROPIUM/ALBUTEROL 0.5-2.5 MG/3 ML AMPUL NEB SCH ×5 (01:36→15:51)
[2020-01-08] MEDS: HEPARIN SOD (PORCINE) 5,000 UNIT/ML 1 ML VIAL SUBCUT SCH (05:49)
[2020-01-08] MEDS: METHYLPREDNISOLONE INJ 40 MG/1 ML SDV IV SCH ×2 (05:55→14:12)
[2020-01-08] MEDS: PANTOPRAZOLE SODIUM 20 MG TABLET.DR PO SCH (05:55)
[2020-01-08 06:23] LABS: HEMATOCRIT 40.2 % (36.0-47.0); HEMOGLOBIN 13.3 g/dL (12.0-15.5); MEAN CORPUSCULAR HEMOGLOBIN 28.5 pg (27.0-33.4); MEAN CORPUSCULAR VOLUME 86 fl (80-97); PLATELET COUNT 347 10^3/uL (150-450); RED BLOOD COUNT 4.66 10^6/uL (3.72-5.28); RED CELL DISTRIBUTION WIDTH 15.1 % (11.5-14.0); WHITE BLOOD COUNT 14.5 10^3/uL (4.0-10.5)
[2020-01-08 06:51] LABS: ANION GAP 9 (5-19); BLOOD UREA NITROGEN 27 mg/dL (7-20); CARBON DIOXIDE 30 mmol/L (22-30); CHLORIDE 97 mmol/L (98-107); GLUCOSE 175 mg/dL (75-110); POTASSIUM 5.4 mmol/L (3.6-5.0)
[2020-01-08] MEDS: ACETYLCYSTEINE 20% SOLN 800 MG/4 ML VIAL.NEB NEB SCH (07:31)
[2020-01-08] MEDS: GUAIFENESIN 600 MG TABLET.SA PO SCH (09:09)
[2020-01-08] MEDS: FUROSEMIDE 20 MG TABLET PO SCH (09:09)
[2020-01-08] MEDS: LOSARTAN POTASSIUM 50 MG TABLET PO SCH (09:09)
[2020-01-08] MEDS: DOXYCYCLINE HYCLATE 100 MG TABLET PO SCH (09:09)
[2020-01-08] MEDS: METOPROLOL TARTRATE 50 MG TABLET PO SCH (09:09)
[2020-01-08] MEDS: FLUTICASONE NASAL SPRAY 50 MCG/SPRY 120 SPRAY/16 GM NASL SCH (09:10)
[2020-01-08] MEDS: GUAIFENESIN/D-METHORPHAN (200-20 MG) SYRUP 10 ML PO PRN ×2 (09:12→16:22)
[2020-01-08] MEDS ORDERED: ROFLUMILAST 500 MCG TABLET PO SCH (10:00)
[2020-01-08 16:46] VITALS: BP 123/70
[2020-01-08] MEDS ORDERED: RIVAROXABAN 10 MG TABLET PO SCH (17:00)
--- NOTE | 2020-01-10 17:14 | PDOC DISCHARGE SUMMARY ---
Impression - Admit/DC Date/PCP Admission Date/Primary Care Provider: 01/05/20 13:04 KATHLEEN WHITFIELD Discharge Date: 01/08/20 - Discharge Diagnosis (1) Acute respiratory failure with hypoxia Is this a current diagnosis for this admission?: Yes (2) Chronic paroxysmal atrial fib Is this a current diagnosis for this admission?: Yes (3) COPD (chronic obstructive pulmonary disease) Is this a current diagnosis for this admission?: Yes (4) Chronic bronchitis Is this a current diagnosis for this admission?: Yes (5) COPD exacerbation Is this a current diagnosis for this admission?: Yes (6) Obesity Is this a current diagnosis for this admission?: Yes (7) Gastroesophageal reflux Is this a current diagnosis for this admission?: Yes (8) Hypertension Is this a current diagnosis for this admission?: Yes - Additional Information Resuscitation Status: Full Code Discharge Diet: Cardiac Discharge Activity: Activity As Tolerated, Balance Activity w/Rest Referrals: KIM LEON MD [NO LOCAL MD] - 01/26/20 11:00 am (Provider's first available appt.) KATHLEEN WHITFIELD MD [Primary Care Provider] - 01/13/20 1:45 pm Prescriptions: Roflumilast [Daliresp 500 Mcg Tablet] 500 mcg PO DAILY #30 tablet Prednisone [Deltasone 20 mg Tablet] 20 mg PO ASDIR PRN #20 tablet PRN Reason: Ipratropium/Albuterol Sulfate [Duoneb 3 ml Ampul] 3 ml NEB RTQ6HP PRN #120 vial.neb PRN Reason: Fluticasone Propionate [Flonase Nasal Haven 50 Mcg/Haven 16 gm] 2 spray NASL Q12 #1 spray.pump Guaifenesin [Mucinex Sr 600 mg Tablet.sa] 600 mg PO Q12 #28 tablet.sa Acetylcysteine [Mucomist 20% Soln 800 mg/4 mL] 600 mg NEB RTBID #60 vial Nicotine [Nicoderm 7 mg/24 Hr Transdermal Patch] 1 each TD DAILYP PRN #30 patch.td24 PRN Reason: Montelukast Sodium [Singulair 10 mg Tablet] 10 mg PO QHS #30 tablet Doxycycline Hyclate [Vibramycin 100 mg Tablet] 100 mg PO Q12 #14 tablet Home Medications: Albuterol Sulfate [Proair HFA Inhalation Aerosol 8.5 gm MDI] 2 puff IH Q6HP PRN 01/03/20 Furosemide [Lasix 20 mg Tablet] 20 mg PO QAM 01/03/20 Losartan Potassium [Cozaar 50 mg Tablet] 50 mg PO DAILY 01/03/20 Metoprolol Tartrate [Lopressor 50 mg Tablet] 50 mg PO Q12 01/03/20 Promethazine HCl 6.25 mg PO Q6HP PRN 01/03/20 Rivaroxaban [Xarelto] 20 mg PO DAILY 01/03/20 Acetaminophen [Tylenol 325 mg Tablet] 650 mg PO Q4HP PRN tablet 01/08/20 Acetylcysteine [Mucomist 20% Soln 800 mg/4 mL] 600 mg NEB RTBID #60 vial 01/08/20 Doxycycline Hyclate [Vibramycin 100 mg Tablet] 100 mg PO Q12 #14 tablet 01/08/20 Fluticasone Propionate [Flonase Nasal [place] 50 Mcg/Haven 16 gm] 2 spray NASL Q12 #1 spray.pump 01/08/20 Guaifenesin [Mucinex Sr 600 mg Tablet.sa] 600 mg PO Q12 #28 tablet.sa 01/08/20 Guaifenesin/D-Methorphan Hb [Robitussin-Dm Syrup 10 ml Udcup] 10 ml PO Q4HP PRN syrup 01/08/20 Ipratropium/Albuterol Sulfate [Duoneb 3 ml Ampul] 3 ml NEB RTQ6HP PRN #120 vial.neb 01/08/20 Metoprolol Tartrate [Lopressor 50 mg Tablet] 50 mg PO Q12 tablet 01/08/20 Montelukast Sodium [Singulair 10 mg Tablet] 10 mg PO QHS #30 tablet 01/08/20 Nicotine [Nicoderm 7 mg/24 Hr Transdermal Patch] 1 each TD DAILYP PRN #30 patch.td24 01/08/20 Prednisone [Deltasone 20 mg Tablet] 20 mg PO ASDIR PRN #20 tablet 01/08/20 Roflumilast [Daliresp 500 Mcg Tablet] 500 mcg PO DAILY #30 tablet 01/08/20 History of Present Illiness History of Present Illness: Per H&P by Dr. Blake: PETER VERONICA is a 74 year old female with a past medical history of obesity, GERD, obstructive sleep apnea, COPD, chronic bronchitis, paroxysmal atrial fibrillation on Xarelto and Lopressor. She presents with 2 days of shortness of breath and nonproductive cough she believes a worsening of her chronic bronchitis. Denying rhinorrhea, sore throat or uncontrolled acid reflux. She admits to compliance with medication regiment but discontinued CPAP use for several weeks. She denies fever chest pain nausea vomiting. EMS finds her with pulse oximetry of 70% she received Solu-Medrol, BiPAP, continuous albuterol treatment with magnesium but remains with significant AA gradient on 60% BiPAP.. She does admit improvement but is transferred to the hospitalist Hospital Course Hospital Course: (1) Acute respiratory failure with hypoxia Secondary to acute on chronic bronchitis, bronchiectasis, and COPD Follow-up chest x-ray shows Dependent left basilar opacity; likely atelectasis. ABG shows compensated respiratory acidosis. Patient was admitted to the medical floor on continuous cardiac telemetry. She was supported with supplemental oxygen scheduled as needed nebulizer treatments, twice daily Mucomyst, Flonase, steroid therapy, guaifenesin, Singulair and Daliresp. Pulmonary toilet was encouraged with incentive spirometer, flutter valve, and ambulation. Oxygen qualification testing revealed the patient continues to require supplemental oxygen while ambulatory. She arrangements were made for her to receive concentrator and portable's prior to discharge. (2) Chronic paroxysmal atrial fib Currently in normal sinus rhythm. Cardiology was consulted. Continue home dose metoprolol and Xarelto. Follow-up with Dr. Venegas as previously scheduled. (3) COPD (chronic obstructive pulmonary disease) Followed by Dr. Leon, pulmonology, as an outpatient. CT chest shows chronic interstitial changes without acute findings (4) Chronic bronchitis As above. (5) COPD exacerbation Resolved. (6) Obesity BMI 34.8. Dietary discretion and lifestyle modification are encouraged. (7) Gastroesophageal reflux Protonix every morning. (8) Hypertension Well controlled on home regiment of metoprolol, losartan, and furosemide. Cardiac diet. Physical Exam Vital Signs: Temp Pulse Resp BP Pulse Ox 98.4 F 61 18 123/70 95 01/08/20 16:04 01/08/20 16:04 01/08/20 16:04 01/08/20 16:04 01/08/20 16:04 General appearance: PRESENT: no acute distress, cooperative, obese, well- developed, well-nourished Head exam: PRESENT: atraumatic, normocephalic Eye exam: PRESENT: conjunctiva pink, EOMI, PERRLA. ABSENT: scleral icterus Ear exam: PRESENT: normal external ear exam Mouth exam: PRESENT: moist, tongue midline Respiratory exam: PRESENT: prolonged expiratory phas, symmetrical, unlabored, other - Supplemental oxygen by nasal cannula. ABSENT: rales, rhonchi, wheezes Cardiovascular exam: PRESENT: RRR, +S1, +S2. ABSENT: diastolic murmur, rubs, systolic murmur Vascular exam: PRESENT: normal capillary refill Extremities exam: PRESENT: full ROM. ABSENT: calf tenderness, clubbing, pedal edema Musculoskeletal exam: PRESENT: ambulatory - On oxygen Neurological exam: PRESENT: alert, awake, oriented to person, oriented to place, oriented to time, oriented to situation, CN II-XII grossly intact. ABSENT: motor sensory deficit Psychiatric exam: PRESENT: anxious, appropriate affect. ABSENT: homicidal ideation, suicidal ideation Skin exam: PRESENT: dry, intact, warm. ABSENT: cyanosis, rash Results Laboratory Results: WBC 14.5 10^3/uL (4.0-10.5) H 01/08/20 06:07 RBC 4.66 10^6/uL (3.72-5.28) 01/08/20 06:07 Hgb 13.3 g/dL (12.0-15.5) 01/08/20 06:07 Hct 40.2 % (36.0-47.0) 01/08/20 06:07 MCV 86 fl (80-97) 01/08/20 06:07 MCH 28.5 pg (27.0-33.4) 01/08/20 06:07 MCHC 33.0 g/dL (32.0-36.0) 01/08/20 06:07 RDW 15.1 % (11.5-14.0) H 01/08/20 06:07 Plt Count 347 10^3/uL (150-450) 01/08/20 06:07 Lymph % (Auto) 8.2 % (13-45) L 01/05/20 04:26 [place] % (Auto) 2.7 % (3-13) L 01/05/20 04:26 Eos % (Auto) 0.0 % (0-6) 01/05/20 04:26 Baso % (Auto) 0.1 % (0-2) 01/05/20 04:26 Absolute Neuts (auto) 9.9 10^3/uL (1.7-8.2) H 01/05/20 04:26 Absolute Lymphs (auto) 0.9 10^3/uL (0.5-4.7) 01/05/20 04:26 Absolute Monos (auto) 0.3 10^3/uL (0.1-1.4) 01/05/20 04:26 Absolute Eos (auto) 0.0 10^3/uL (0.0-0.6) 01/05/20 04:26 Absolute Basos (auto) 0.0 10^3/uL (0.0-0.2) 01/05/20 04:26 Seg Neutrophils % 89.0 % (42-78) H 01/05/20 04:26 Carbonic Acid 1.24 mmol/L (1.05-1.35) 01/07/20 15:38 HCO3/H2CO3 Ratio 20:1 01/07/20 15:38 ABG pH 7.40 (7.35-7.45) 01/07/20 15:38 ABG pCO2 41.2 mmHg (35-45) 01/07/20 15:38 ABG pO2 66.8 mmHg (80-100) L 01/07/20 15:38 ABG HCO3 25.1 mmol/L (20-24) H 01/07/20 15:38 ABG Total CO2 26.3 mmol/L (21-25) H 01/07/20 15:38 ABG O2 Saturation 93.3 % (94-98) L 01/07/20 15:38 ABG Base Excess 0.3 mmol/L 01/07/20 15:38 VBG pH 7.32 (7.30-7.42) 01/03/20 03:37 VBG pCO2 55.1 mmHg (35-63) 01/03/20 03:37 VBG HCO3 27.6 mmol/L (20-32) 01/03/20 03:37 VBG Base Excess 0.4 mmol/L 01/03/20 03:37 FiO2 NC 5 01/07/20 15:38 Sodium 136.0 mmol/L (137-145) L 01/08/20 06:07 Potassium 5.4 mmol/L (3.6-5.0) H 01/08/20 06:07 Chloride 97 mmol/L (98-107) L 01/08/20 06:07 Carbon Dioxide 30 mmol/L (22-30) 01/08/20 06:07 Anion Gap 9 (5-19) 01/08/20 06:07 BUN 27 mg/dL (7-20) H 01/08/20 06:07 Creatinine 0.88 mg/dL (0.52-1.25) 01/08/20 06:07 Est GFR ( Amer) > 60 (>60) 01/08/20 06:07 Est GFR (MDRD) Non-Af > 60 (>60) 01/08/20 06:07 Glucose 175 mg/dL (75-110) H 01/08/20 06:07 Calcium 10.0 mg/dL (8.4-10.2) 01/08/20 06:07 Total Bilirubin 0.7 mg/dL (0.2-1.3) 01/03/20 03:37 Direct Bilirubin 0.1 mg/dL (0.0-0.4) 01/03/20 03:37 Neonat Total Bilirubin Not Reportable 01/03/20 03:37 Neonat Direct Bilirubin Not Reportable 01/03/20 03:37 Neonat Indirect Bili Not Reportable 01/03/20 03:37 AST 23 U/L (14-36) 01/03/20 03:37 ALT 11 U/L (<35) 01/03/20 03:37 Alkaline Phosphatase 110 U/L (38-126) 01/03/20 03:37 Troponin I < 0.012 ng/mL 01/03/20 03:37 NT-Pro-B Natriuret Pep 258 pg/mL (<125) H 01/03/20 03:37 Total Protein 7.0 g/dL (6.3-8.2) 01/03/20 03:37 Albumin 3.8 g/dL (3.5-5.0) 01/03/20 03:37 01/03/20 03:37 Troponin I < 0.012 NT-Pro-B Natriuret Pep 258 H Impressions: Chest X-Ray 01/03/20 03:35 IMPRESSION: Cardiomegaly. Minor fibrotic changes in the lung apices. Suspected small bibasilar effusions and/or pleural thickening copyright 2010 [employer]- All Rights Reserved Chest CT 01/05/20 00:00 IMPRESSION: Mild stable increased interstitial markings both upper lobes with right upper lobe bronchiectasis. Chest X-Ray 01/07/20 00:00 IMPRESSION: Borderline cardiomegaly without pulmonary edema. Cannot exclude a pleural effusion on the left. Consider decubitus films. Chest X-Ray 01/07/20 00:00 IMPRESSION: No significant effusion. Stable enlarged cardiac silhouette. Plan Plan of Treatment: Patient is discharged to home in the care of family members with arrangements having been made for her to receive home oxygen. She is instructed to follow-up with her primary care provider within 1 week. She is advised to follow-up with Dr. Leon at the earliest available appointment. She is encouraged to take her medications as prescribed. She is instructed to stop smoking and avoid known respiratory triggers (dust, pollen, pet dander, smoke). She is encouraged to return to the emergency department as needed for concerning symptoms Time Spent: Greater than 30 Minutes Stroke Is this a Stroke Patient?: No Acute Heart Failure - Is this a Heart Failure Patient?: No
== END 2020-01-08 18:31 | disposition home or self-care (01) | DRG 189 ==
LOC: ER 03:08 → EH 05:51 → 5 07:36 → OBSVTOIN 01-05 13:04
PROVIDERS: ADMIT Internal Medicine; ATTEND Internal Medicine
PROC: 5A09557 Assistance with Respiratory Ventilation, Greater than 96 Consecutive Hours, Continuous Positive Airway Pressure (ICD-10-PCS; principal; 2020-01-03)
DX: J96.01 Acute respiratory failure with hypoxia (principal); J44.1 Chronic obstructive pulmonary disease with (acute) exacerbation; I42.0 Dilated cardiomyopathy; J44.0 Chronic obstructive pulmonary disease with (acute) lower respiratory infection; J20.9 Acute bronchitis, unspecified; I48.0 Paroxysmal atrial fibrillation; E66.9 Obesity, unspecified; K21.9 Gastro-esophageal reflux disease without esophagitis; I10 Essential (primary) hypertension; G47.33 Obstructive sleep apnea (adult) (pediatric); I44.7 Left bundle-branch block, unspecified; E78.5 Hyperlipidemia, unspecified; E78.00 Pure hypercholesterolemia, unspecified; F41.9 Anxiety disorder, unspecified; Z96.641 Presence of right artificial hip joint; Z79.01 Long term (current) use of anticoagulants; Z79.899 Other long term (current) drug therapy; Z68.34 Body mass index [BMI] 34.0-34.9, adult; Z87.891 Personal history of nicotine dependence; Z88.3 Allergy status to other anti-infective agents; Z91.19 Patient's noncompliance with other medical treatment and regimen
CPT/HCPCS: 36415; 36600; 71045; 71250; 80048; 80053; 82803; 83880; 84484; 85025; 85027; 87040; 93005; 93010; 94640; 94660; 94667; 94668; 94799; 99285; G0378; J0696; J1644; J2920; J3490; J7512; J7620